=== PATIENT | male | born 1940 | race Caucasian/White ===

== ENCOUNTER 2018-01-20 13:36 | Inpatient (IN) | payer MEDICARE, SELFPAY ==
[2018-01-20] VITALS (13 sets, daily range): BP systolic 122–169; BP diastolic 56–75; PULSE 58–75; RESP 13–18; TEMP 36.5–36.6; O2SAT 69–100; BMI 24.3; BMI 22.4
--- NOTE | 2018-01-20 13:50 | ED.RN ---
PT HAD A RECENT CASE OF BEDBUGS SO [facility], CLOTHING REMOVED AND BATHED. PT WAS PLACED IN A GOWN AND CLOTHING BAGGED UP. NO BUGS OR BITES WERE OBSERVED AT THIS TIME.
--- NOTE | 2018-01-20 13:56 | EKG12_ITS ---
Test Reason : Blood Pressure : / mmHG Vent. Rate : 076 BPM Atrial Rate : 076 BPM P-R Int : 148 ms QRS Dur : 136 ms QT Int : 414 ms P-R-T Axes : -14 043 022 degrees QTc Int : 465 ms Sinus rhythm with Premature supraventricular complexes Non-specific intra-ventricular conduction block Abnormal ECG Confirmed by OSMIN GO, JOSÉ ([id number]), website/blog editor JASSON KIRK ([id number]) on 01/23/2018 12:52:19 PM Referred By: LIAM Confirmed By:JOSÉ SOLORIO MD
[2018-01-20] MEDS: 0.9% Normal Saline 1,000 ML 999 ML IV ×2 (14:00→15:00)
--- NOTE | 2018-01-20 14:15 | RAD_ITS ---
STUDY: X-RAY CHEST REASON FOR EXAM: Male, 77 years old. Dyspnea. TECHNIQUE: Frontal and lateral views of the chest. # of Images: 3 COMPARISON: None. FINDINGS: The lungs are clear and expanded. There is no demonstrated pleural abnormality. Sternal cerclage wires are present from a prior sternotomy. Normal mediastinum and alyson. Normal visualized pulmonary arteries. Normal visualized aortic arch and descending thoracic aorta. Normal visualized thoracic spine. There is degenerative osteoarthritis of the bilateral shoulders. There is no demonstrated abnormality of the visualized soft tissue structures of the upper abdomen. RAD/Chest PA and Lateral IMPRESSION: Degenerative changes, as described above. No demonstrated acute cardiopulmonary process. Electronically Signed: Robinson Clay MD at 15:09 EDT Tel , Service support ,
[2018-01-20 14:24] LABS: Absolute Lymphocyte Count 1.47 X10^3/ul (0.83-4.51); Absolute Neutrophil Count 12.8 X10^3/uL (2.0-7.7); Eosinophil# 0.08 X10^3/uL; Eosinophils% 0.5 % (0-5); Hematocrit 35.9 % (40-54); Hemoglobin 12.1 g/dl (13.0-16.5); Lymphocyte # 1.47 X10^3/ul (4.0); Lymphocyte % 9.9 % (19-41); Mean Corp Hgb Conc 33.7 g/gl (32-36); Mean Corpuscular Volume 92.1 fL (80-94); Mean Platelet Vol. 9.9 fl (6.2-12.0); Monocyte# 0.45 X10^3/uL; Neutrophil # 12.84 X10^3/uL (2.7-7.7); Neutrophil % 86.5 % (47-70); Platelet Count 277 K/mm3 (150-450); RBC Distribution Width CV 11.9 % (11.6-14.6); RBC Distribution Width SD 39.9 fl (35.1-43.9); White Blood Count 14.9 K/mm3 (4.4-11.0)
[2018-01-20 14:28] LABS: Differential Indicated SCAN CRITERIA MET; POSITIVE COUNT NO; POSITIVE DIFFERENTIAL NO; POSITIVE MORPHOLOGY YES
[2018-01-20 14:36] LABS: Anion Gap 10 (5-15); BUN 48 mg/dL (7-18); BUN/Creat Ratio 26.7 RATIO (10-20); Calcium,Total 8.6 mg/dL (8.5-10.1); Chloride 95 mmol/L (98-107); EST Glomerular Filtration Rate 39 mL/min (>60); Est Glom Filt Rate - Afr Amer 48 mL/min (>60); Estimated Creatinine Clearance 34.31 ml/min; Glucose 661 mg/dL (74-106); Potassium 5.4 mmol/L (3.5-5.1); Sodium Level 128 mmol/L (136-145)
[2018-01-20 14:41] LABS: Differential Comment SCANNED
[2018-01-20 14:51] LABS: Bedside Glucose > 500 mg/dL (70-110)
[2018-01-20 14:51] LABS: Bedside Glucose > 500 mg/dL (70-110)
--- NOTE | 2018-01-20 15:00 | CM.ED ---
Referral Date: 01/20/2018 Date of Assessment: 01/20/2018 Informant: Gricelda Null RN Reason for Consult: Limited Supports Clothes/House unkempt Information obtained from: Medical record and pt. Pt was alert and oriented x4. Pt is very [place]. No family/visitors present during conversation. Pt presents with pleasant affect as evidenced by smiling and willingness to participate in assessment. Living Situation: Pt reports to live alone in a two-story home with a one-level setup. Denies access issues or use of DME for ambulation for assistance in completing ADL's. Reports to be independent with ADL's and denies need for assistance. States that someone could aide him with laundry. Inform that this presently would be a private pay expense, which the pt denies being able to do. Address that their are two siblings listed on the demo sheet with the same address. Pt confirms that his brother, Hai, has since passed, and his sister, Dana is presently residing at [facility]. Financial: Pt gets $441 through social security monthly. Claims to be financially stable, and the pt denies inability to meet basic needs such as food, water, fci, and utility expenses. Educate to Medicaid as the pt does not have this, and he is agreeable to reviewing an application. Provide pt with the application, and he would like to review it. Denies assistance from this song writer to complete the application at this time. Pt is retired and worked at [employer] as well as the [employer] prior to retiring. Denies a pension and reports the above noted SS amount for monthly income. Transportation: Pt does not drive. Reports to get vouchers through [employer] [facility]. States that this is sufficient enough to meet needs. Education: Pt reports to have completed high school. Is able to read and right and denies comprehension concerns. Pt is able to maintain appropriate conversation throughout assessment and train of thought remains aligned with conversation topic. Medical Hx: Type I Diabetes, Hyperlipidemia, Hypertension, Presbycusis of both ears, and TIA. Pt reportedly quit taking his insulin about a year ago. States I didn't think it was doing anything. I felt the same when I took it, as when I didn't. Inform that to maintain a balanced blood sugar level he needs to be compliant with insulin. Denies any financial issues with obtaining insulin. Mental Health Hx: Pt denies mental health history. Denies symptoms of anxiety or depression. Denies SI or HI. Substance Use Hx: Pt denies substance use in the past or presently. Social and/or Family Stressors: Pt denies any family disputes or stressors presently. States that his sister is in a SNF, and he has cousins that live within [facility], but he does not see them much. Reports again that he can manage his own care, and does not have any stressors presently. Supports: Identifies his sister, Dana, as his primary support. No children. ASSESSMENT: Pt presents with pleasant affect as evidenced by smiling and willingness to participate in assessment. Pt is alert and oriented x4 and able to maintain topic of conversation. Reportedly lives alone and claims to be able to manage care. Per nursing staff the pt came in with dirty clothes, and stated he had not bathed in a week. Do believe that an APS reports at discharge is appropriate d/t to uncleanly presentation upon entry into ED as well as known hx of deplorable living conditions. At this time pt does intend on returning home. However, is agreeable to consider recommendations provided by therapy following evaluations. SW to continue to follow and assist with discharge planning. PLAN: Assist in discharge planning upon completion of PT/OT evaluations to determine appropriate level of care at discharge. Submit Medicaid application to [facility], upon completion, for medical assistance and food stamp assistance. KEELEY [place], TRISTAN
--- NOTE | 2018-01-20 15:11 | ED.VISSUMM ---
- ER Visit Summary Date of Service: 01/20/18 Chief Complaint: Generalized weakness for the past 3 days and complains of cough with shortness of breath History of Present Illness: The patient is a 77 M who is a poor informant because he did not bring in the list of his meds nor is he wearing his hearing aid. He is very hard of hearing. After attempting verbal and written communication it was determined the patient has not felt well for the past 3 days. He admits he has not taken his insulin for months. He does not know the specific names of his medicines. He states he has had heart disease with history of heart attack, hypertension and high cholesterol. He states he stopped taking the insulin because it did not have any effect. He denies any double vision, blurred vision or change in vision. He denies chest pain, palpitations or rapid heart rate. He denies orthopnea or PND. He denies nausea, vomiting diarrhea. He denies any urologic symptoms including frequency. He denies myalgias arthralgias. He denies headache, anesthesia, paresthesia or motor weakness. He complains of generalized weakness. Physical Examination: Vital signs noted and unremarkable blood pressure 123/75. He is not febrile. Head is atraumatic normocephalic. Pupils are equal round reactive. Extraocular muscles are intact. TMs are pearly white with landmarks noted. Nares patent with no drainage. Posterior pharynx without erythema or exudate. Uvula is midline. Tongue and buccal mucosa are dry. There is no dysphonia or dysphasia. Trachea is midline. There is no stridor with auscultation of the neck. Heart is regular without murmur, gallop or rub. S1 and S2 are normal. Lungs are clear to auscultation with good movement of air bilaterally. Abdomen scaphoid nontender bowel sounds present diminished. There is no CVA tenderness noted. Patient has stigmata of peripheral arterial disease lower extremities. Neuro is nonfocal. There are no skin lesions or rash. Test Results: B GT read high. White count is 14.9 thousand with no shift. H&H 12.1 and 35.9. Basic metabolic panel reveals a sodium of 128, potassium of 5.4, chloride 95 with a CO2 of 23 and anion gap of 10. Glucose is 661. BUN and creatinine are 48 and 1.81. Troponin was obtained and less than 0.015. EKG sinus rhythm rate of 76 with an intraventricular conduction delay and peaked T waves suggestive of hyperkalemia. There apparently is no old EKG for comparison Emergency Department Course and Treatment: With history of generalized weakness dyspnea cough and prior medical problems and EKG was obtained to evaluate for hyperkalemia and acute ischemia since monitor reveals depression. Chest x-ray to evaluate for CHF, pneumonia or other cause of his shortness of breath. DKA order set was initiated. He received 2 L of normal saline prior to the initiation of insulin drip. His blood sugar did decrease to upper 500s with IV fluid administration. Plan is to treat mild hyperkalemia with insulin drip and repeat BMP. If there is no improvement or any concerns further treatment can be undertaken. Treatment Plan: The hospitalist was paged for admission to PCU stepdown Disposition: Admit PCU stepdown Impression: 1. Nonketotic hyperglycemia 2. Acute kidney injury 3. Pseudohyponatremia 4. Hyperkalemia 5. History of coronary disease/OK 6. History of hypertension 7. History of hypercholesterolemia This note was generated with [employer] dictation software. It may contain incorrect words, spelling, and punctuation that were not noted in review of the chart prior to signing ED Disposition - Plan for ED Patient: Chief Complaint: Hyperglycemia Referrals: Roseann Jackson MD [Primary Care Provider] -
--- NOTE | 2018-01-20 15:17 | ED.DCSUM_ITS ---
- ER Visit Summary Date of Service: 01/20/18 Chief Complaint: Generalized weakness for the past 3 days and complains of cough with shortness of breath History of Present Illness: The patient is a 77 M who is a poor informant because he did not bring in the list of his meds nor is he wearing his hearing aid. He is very hard of hearing. After attempting verbal and written communication it was determined the patient has not felt well for the past 3 days. He admits he has not taken his insulin for months. He does not know the specific names of his medicines. He states he has had heart disease with history of heart attack, hypertension and high cholesterol. He states he stopped taking the insulin because it did not have any effect. He denies any double vision, blurred vision or change in vision. He denies chest pain, palpitations or rapid heart rate. He denies orthopnea or PND. He denies na usea, vomiting diarrhea. He denies any urologic symptoms including frequency. He denies myalgias arthralgias. He denies headache, anesthesia, paresthesia or motor weakness. He complains of generalized weakness. Physical Examination: Vital signs noted and unremarkable blood pressure 123/75. He is not febrile. Head is atraumatic normocephalic. Pupils are equal round reactive. Extraocular muscles are intact. TMs are pearly white with landmarks noted. Nares patent with no drainage. Posterior pharynx without erythema or exudate. Uvula is midline. Tongue and buccal mucosa are dry. There is no dysphonia or dysphasia. Trachea is midline. There is no stridor with auscultation of the neck. Heart is regular without murmur, gallop or rub. S1 and S2 are normal. Lungs are clear to auscultation with good movement of air bilaterally. Abdomen scaphoid nontender bowel sounds present diminished. There is no CVA tenderness noted. Patient has stigmata of peripheral arterial disease lower extremities. Neuro is nonfocal. There are no skin lesions or rash. Test Results: B GT read high. White count is 14.9 thousand with no shift. H&H 12.1 and 35.9. Basic metabolic panel reveals a sodium of 128, potassium of 5.4, chloride 95 with a CO2 of 23 and anion gap of 10. Glucose is 661. BUN and creatinine are 48 and 1.81. Troponin was obtained and less than 0.015. EKG sinus rhythm rate of 76 with an intraventricular conduction delay and peaked T waves suggestive of hyperkalemia. There apparently is no old EKG for comparison Emergency Department Course and Treatment: With history of generalized weakness dyspnea cough and prior medical problems and EKG was obtained to evaluate for hyperkalemia and acute ischemia since monitor reveals depression. Chest x-ray to evaluate for CHF, pneumonia or other cause of his shortness of breath. DKA order set was initiated. He received 2 L of normal saline prior to the initiation of insulin drip. His blood sugar did decrease to upper 500s with IV fluid administration. Plan is to treat mild hyperkalemia with insulin drip and repeat BMP. If there is no improvement or any concerns further treatment can be undertaken. Treatment Plan: The hospitalist was paged for admission to PCU stepdown Disposition: Admit PCU stepdown Impression: 1. Nonketotic hyperglycemia 2. Acute kidney injury 3. Pseudohyponatremia 4. Hyperkalemia 5. History of coronary disease/ME 6. History of hypertension 7. History of hypercholesterolemia This note was generated with [employer] dictation software. It may contain incorrect words, spelling, and punctuation that were not noted in review of the chart prior to signing ED Disposition - Plan for ED Patient: Chief Complaint: Hyperglycemia Referrals: Roseann Jackson MD [Primary Care Provider] -
[2018-01-20 15:27] LABS: Bacteria 0 SEEN /hpf (None Seen); Mucous, Urine 0 SEEN /hpf (<or=2+); Red Blood Cells-Urine 0 SEEN /hpf (0-5); Squamous Epithelial Cells - UA 0 SEEN /hpf (0-5); White Blood Cells 0 SEEN /hpf (0-5)
[2018-01-20 15:30] LABS: Color, Urine Yellow (Yellow); Glucose, Dipstick 1000 mg/dl (Normal); Ketone-Dipstick Negative (Negative); Leukocyte Esterase-Dipstick Negative /ul (Negative); Nitrite-Dipstick Negative (Negative); Occult Blood-Urine Negative /ul (Negative); Protein-Dipstick Negative (Negative); Urine Bilirubin Dipstick Negative (Negative); Urine Clarity Clear (Clear); Urine Urobilinogen Normal (Normal)
--- NOTE | 2018-01-20 15:56 | PCM.HP.STD ---
Problem List (1) Hyperglycemic hyperosmolar state Status: Acute (2) Acute kidney injury Status: Acute (3) Pseudohyponatremia Status: Acute (4) Type I diabetes mellitus Status: Chronic (5) Benign prostatic hypertrophy Status: Chronic (6) Hyperlipidemia Status: Chronic (7) Hypertension Status: Chronic (8) Presbycusis of both ears Status: Chronic (9) TIA (transient ischemic attack) Status: Chronic History of Present Illness Date of Admission: 01/20/18 Chief Complaint: Generalized weakness. The patient is a 77 year old M with past medical history as mentioned above presented to the emergency department because of generalized weakness. The patient is a poor informant because he is hard of hearing and he is not wearing his hearing aid and he was not able to provide detailed history. His main complaint is that he has been feeling weak and not able to ambulate for the last several days. He did not complain of any other specific symptoms except from mild cough and shortness of breath. He mentioned that he stopped taking his insulin almost a year because he thinks that insulin is not doing anything for his blood sugars. He denied chest pain, palpitation, dizziness or lightheadedness. Denied abdominal pain, nausea vomiting. He denied headache, blurry vision or slurred speech. He had a history of CAD status post CABG and he has been on aspirin, statins, beta-blockers and KATHRYN inhibitors. He has a history of type 1 diabetes mellitus and he has been on insulin as well as metformin and glimepiride but he stopped taking insulin almost a year now. Currently, he is not seeing his PCP, Dr. Jackson, and he mentioned that he saw her almost a year ago. He had a history of hypertension and he has been on lisinopril, HCTZ and metoprolol. In the emergency department, his blood pressure was slightly elevated, other vital signs were stable. His routine blood work was remarkable for leukocytosis, sodium of 128, potassium 5.4, BUN of 48, creatinine 4.80 and his blood sugar was 661. His serum bicarb was 23 and anion gap was 10, no evidence of DKA. His troponin was negative. EKG revealed normal sinus rhythm with PVCs and peaked T waves, no acute ischemic changes. Troponin is negative. Chest x-ray showed no acute findings. Urinalysis showed no evidence of acute cystitis. His acetone level was negative. He is being admitted for hyperglycemic hyperosmolar state due to noncompliance with insulin as well as acute kidney injury, pseudohyponatremia and hyperkalemia. Past Medical History Past Medical History (Chronic Problems): Chronic Problems Status post coronary artery bypass graft (Chronic) Coronary artery disease (Chronic) Type I diabetes mellitus (Chronic) Benign prostatic hypertrophy (Chronic) Hyperlipidemia (Chronic) Hypertension (Chronic) Presbycusis of both ears (Chronic) TIA (transient ischemic attack) (Chronic) Allergies No Known Allergies Allergy (Verified 03/19/15 19:41) Home Medications: Ambulatory Orders Medication Instructions Recorded Finasteride [Proscar] 5 mg PO DAILY 10/19/13 Metformin HCl [Glucophage] 1,000 mg PO BIDCM 10/19/13 Tamsulosin HCl [Flomax] 0.4 mg PO DAILY 10/19/13 Insulin NPH Human Isophane 15 units SQ DINNER 03/19/15 [Humulin N Kwikpen] Insulin NPH Human Isophane 18 unit SQ BREAKFAST 03/19/15 [Humulin N Kwikpen] Aspirin [Aspirin, Baby] 81 mg PO DAILY@0800 03/20/15 Glimepiride [Amaryl] 4 mg PO BIDCM 03/20/15 Atorvastatin Calcium 20 mg PO QHS 01/20/18 Hydrochlorothiazide 12.5 mg PO DAILY 01/20/18 Lisinopril [Zestril] 40 mg PO DAILY 01/20/18 Metoprolol Tartrate [Lopressor 50 mg PO BID 01/20/18 (beta chastity)] Nitroglycerin [Nitrostat] 0.4 mg SL PRN PRN 01/20/18 Surgical History: - - Patient is hard of hearing and cannot remember if he had any surgeries in his life. Psychiatric History: No pertinent psych hx Lives: Alone Smoking Status: Never smoker Alcohol: None Drugs: None - *Family History Maternal History Items: - - Patient is hard of hearing, not able to provide detailed family history. Paternal History Items: - - Patient is hard of hearing. Review of Systems Constitutional: Denies: Anorexia, Chills, Fever, Weakness Eyes: Denies: Blurred vision, Double vision, Drainage, Redness HEENT: Denies: Difficulty Hearing, Ear Pain, Eye Pain, Nasal bleeding, Sore Throat Cardiovascular: Denies: Chest Pain, Chest Pressure, Chest Tightness, Palpitations, Syncope Respiratory: Reports: Cough, Shortness of Breath. Denies: Pleuritic Pain, Sputum production, Wheezing Gastrointestinal: Denies: Abdominal Pain, Constipation, Diarrhea, Nausea, Vomiting Genitourinary: Denies: Dysuria, Frequency, Hematuria Musculoskeletal: Denies: Arm Pain, Back Pain, Foot Pain Skin: Denies: Dryness, Rash Neurological: Denies: Balance problems, Double vision, Change in Speech, Slurred speech, Headaches, Incoordination, Numbness Psychiatric: Denies: Anxiety, Depression Endocrine: Denies: Change in Body Habitus, Polydipsia VTE Information - Inpt Only VTE Present on Admission: No VTE Mechan Device Prophylaxis: SCD's VTE Pharm Prophylaxis ordered?: No Patient Problems: Active and Suspected Problems Hyperkalemia (Acute) Hyperglycemic hyperosmolar state (Acute) Acute kidney injury (Acute) Pseudohyponatremia (Acute) - Physical Exam General: Alert, Cooperative, No apparent distress, - - Hard of hearing, poor informant. HEENT: Atraumatic, PERRLA, EOMI, Normocephalic Oral: Moist Mucosa, No Gingival or Mucosal Lesions/ Ulcerations Neck: Supple, No JVD, Negative Carotid Bruits, Trachea Midline, Thyroid Normal Size and Texture Lungs: Clear to auscultation, No rhonchi, No wheeze, No rales, Diminished Cardiovascular: Regular rate, Regular Rhythm, Normal S1, Normal S2, PMI Normal Abdomen: Bowel Sounds Present, Soft, Non Tender, Non-Distended, No Hepato-splenomegaly Extremities: No clubbing, No cyanosis, No edema Skin: No rashes, No breakdown Lymphatic: No Cervical, Supraclavicular, or Inguinal Adenopathy Neurological: Cranial nerves II-XII grossly intact, Motor Exam 5/5 strength throughout Psych/Mental Status: Normal Affect, Appropriate Vital Signs Temp Pulse Resp BP Pulse Ox 97.7 F L 66 17 169/63 H 99 01/20/18 13:45 01/20/18 15:36 01/20/18 15:36 01/20/18 15:36 01/20/18 15:36 Oxygen Delivery Method Room Air Weight: 160 lb Body Mass Index (BMI) 24.3 Finger Stick Blood Glucose 576 Laboratory Tests Past 24 Hrs 01/20/18 01/20/18 01/20/18 14:03 14:03 14:03 WBC 14.9 H RBC 3.90 L Hgb 12.1 L Hct 35.9 L MCV 92.1 MCH 31.0 MCHC 33.7 RDW 11.9 RDW Differential 39.9 Plt Count 277 MPV 9.9 Immature Gran % (Auto) 0.100 Neut % (Auto) 86.5 H Lymph % (Auto) 9.9 L [place] % (Auto) 3.0 Eos % (Auto) 0.5 Baso % (Auto) 0.0 Absolute Neuts (auto) 12.8 H Absolute Lymphs (auto) 1.47 Total Counted Not Reportable Differential Comment SCANNED Sodium 128 L Potassium 5.4 H Chloride 95 L Carbon Dioxide 23.0 Anion Gap 10 BUN 48 H Creatinine 1.80 H Estim Creat Clear Calc 34.31 Est GFR (MDRD) Af Amer 48 L Est GFR (MDRD) Non-Af 39 L BUN/Creatinine Ratio 26.7 H Glucose 661 H* Calcium 8.6 Troponin I < 0.015 Urine Color Urine Clarity Urine pH Ur Specific [place] Urine Protein Urine Glucose (UA) Urine Ketones Urine Occult Blood Urine Nitrite Urine Bilirubin Urine Urobilinogen Ur Leukocyte Esterase Urine RBC Urine WBC Ur Squamous Epith Cells Urine Bacteria Urine Mucus Acetone Level NEGATIVE 01/20/18 01/20/18 14:03 15:20 WBC RBC Hgb Hct MCV MCH MCHC RDW RDW Differential Plt Count MPV Immature Gran % (Auto) Neut % (Auto) Lymph % (Auto) [place] % (Auto) Eos % (Auto) Baso % (Auto) Absolute Neuts (auto) Absolute Lymphs (auto) Total Counted Differential Comment Sodium Cancelled Potassium Cancelled Chloride Cancelled Carbon Dioxide Cancelled Anion Gap Cancelled BUN Cancelled Creatinine Cancelled Estim Creat Clear Calc Cancelled Est GFR (MDRD) Af Amer Cancelled Est GFR (MDRD) Non-Af Cancelled BUN/Creatinine Ratio Cancelled Glucose Cancelled Calcium Cancelled Troponin I Urine Color Yellow Urine Clarity Clear Urine pH 5.0 Ur Specific [place] 1.010 Urine Protein Negative Urine Glucose (UA) 1000 H Urine Ketones Negative Urine Occult Blood Negative Urine Nitrite Negative Urine Bilirubin Negative Urine Urobilinogen Normal Ur Leukocyte Esterase Negative Urine RBC 0 SEEN Urine WBC 0 SEEN Ur Squamous Epith Cells 0 SEEN Urine Bacteria 0 SEEN Urine Mucus 0 SEEN Acetone Level POC Glucose 01/20/18 01/20/18 14:45 13:50 POC Glucose > 500 H* > 500 H* Clinical Impression(s) from Imaging Studies Chest X-Ray 01/20/18 14:15 IMPRESSION: Degenerative changes, as described above. No demonstrated acute cardiopulmonary process. Electronically Signed: Robinson Clay MD at 15:09 EDT Tel , Service support , Assessment/Plan All Active Problems Hyperkalemia (Acute) Hyperglycemic hyperosmolar state (Acute) Acute kidney injury (Acute) Pseudohyponatremia (Acute) This is a 77 years old male patient presented to the emergency room because of weakness and he was found to have hyperglycemic hyperosmolar state complicated by acute kidney injury, pseudohyponatremia and hyperkalemia and he is being admitted for treatment. #1 hyperglycemic hyperosmolar state: This is based on blood sugar of more than 600, serum bicarb of more than 18, anion gap of 10 and no ketones in the urine. This is probably due to noncompliance as patient stopped taking his insulin almost 1 year ago. He saw his PCP last time around 1 year ago and he does not check his blood sugar at home. At this time, blood pressure slightly elevated, other vital signs are stable. He received 1 L of IV fluid bolus and received another 500 fluid bolus, started on IV insulin drip. Plan: Admit to ICU, keep on n.p.o. except for p.o. meds, maintenance IV fluids, continue IV insulin drip, BMP every 4 hours, Accu-Cheks per protocol, hemoglobin A1c, IV antiemetics, Tylenol as needed, repeat CBC and BMP tomorrow morning, PT OT evaluation and treatment. #2 acute kidney injury: This is secondary to above. Baseline creatinine is normal. Admission creatinine is 1.80, BUN is 48. Plan: IV fluids, input output chart, repeat BMP tomorrow morning. #3 hyperkalemia: Secondary to above in addition to acute kidney injury. Admission potassium is 5.4. EKG revealed peaked T waves. Patient started on IV insulin drip. Plan: IV fluids, continue IV insulin drip, BMP every 4 hours, repeat EKG tomorrow morning. #4 pseudohyponatremia: Secondary to hyperglycemia. Corrected sodium for glucose is 137. Expect sodium to correct with correction of hyperglycemia. #5 type 1 diabetes mellitus: Keep on n.p.o. for now, continue IV insulin drip as above, hemoglobin A1c. Patient stopped taking his insulin almost 1 year ago. #6 CAD status post CABG: Daily chest pain. EKG revealed peaked T waves, no acute ischemic changes. Troponin is negative. Plan to continue aspirin, statins, lisinopril and metoprolol. #7 hypertension: Blood pressure slightly elevated, continue HCTZ, lisinopril and metoprolol. #8 benign prostatic hypertrophy: Continue Flomax. #9 hyperlipidemia: Continue statins. #10 DVT prophylaxis: Subcu heparin. This note was generated with [employer] dictation software. It may contain incorrect words, spelling, and punctuation that were not noted in checking the note before signing. Code Visit Inpatient E&M: 77141 Init Hosp L3
[2018-01-20] MEDS: 0.9% Normal Saline 1,000 ML 500 ML IV (16:09)
--- NOTE | 2018-01-20 16:46 | ED.RN ---
LAB RESULTED GLUCOSE 499, PHYSICIAN NOTIFIED
[2018-01-20 16:47] LABS: Anion Gap 9 (5-15); BUN 47 mg/dL (7-18); BUN/Creat Ratio 30.1 RATIO (10-20); Calcium,Total 8.5 mg/dL (8.5-10.1); Chloride 101 mmol/L (98-107); Creatinine, Serum 1.56 mg/dL (0.70-1.30); EST Glomerular Filtration Rate 46 mL/min (>60); Est Glom Filt Rate - Afr Amer 56 mL/min (>60); Estimated Creatinine Clearance 39.58 ml/min; Glucose 499 mg/dL (74-106); Sodium Level 133 mmol/L (136-145)
[2018-01-20 16:56] LABS: Bedside Glucose 477 mg/dL (70-110)
[2018-01-20 16:56] LABS: Bedside Glucose 479 mg/dL (70-110)
[2018-01-20 17:21] LABS: Bedside Glucose 412 mg/dL (70-110)
[2018-01-20 17:50] LABS: Allen Test POS; Base Excess -4 mmol/L (-2 to +2); Bicarbonate 19.6 mmol/L (22-26); Blood Gas Specimen Type ART; O2 Delivery Device Room Air; PO2 92 mmHG (75-100); SITE R Radial; SO2 98 % (95-99); Time Given 1743; Total Carbon Dioxide 20 mmol/L; pH 7.47 (7.35-7.45)
[2018-01-20] MEDS: 0.9% Normal Saline 1,000 ML 125 ML IV (18:11)
[2018-01-20 18:36] LABS: Hemoglobin A1c 14.7 % (4.2-6.3)
[2018-01-20 18:51] LABS: Bedside Glucose 295 mg/dL (70-110)
[2018-01-20 18:53] LABS: Anion Gap 6 (5-15); BUN 41 mg/dL (7-18); BUN/Creat Ratio 30.1 RATIO (10-20); Calcium,Total 7.9 mg/dL (8.5-10.1); Chloride 106 mmol/L (98-107); Creatinine, Serum 1.36 mg/dL (0.70-1.30); EST Glomerular Filtration Rate 54 mL/min (>60); Est Glom Filt Rate - Afr Amer 66 mL/min (>60); Estimated Creatinine Clearance 44.48 ml/min; Glucose 335 mg/dL (74-106); Sodium Level 136 mmol/L (136-145); Thyroid Stim Hormone (TSH) 0.62 uIU/mL (0.358-3.74)
[2018-01-20 19:56] LABS: Bedside Glucose 221 mg/dL (70-110)
[2018-01-20 20:51] LABS: Bedside Glucose 193 mg/dL (70-110)
[2018-01-20] MEDS: Metoprolol Tartrate 50 MG Tablet PO (21:39)
[2018-01-20] MEDS: Atorvastatin Calcium 20 MG Tablet PO (21:40)
[2018-01-20] MEDS: Heparin Injection (Vial) 5,000 UNIT/ML VIAL 5000 UNIT SC (21:40)
[2018-01-20 21:51] LABS: Bedside Glucose 185 mg/dL (70-110)
[2018-01-20 22:55] LABS: Bedside Glucose 175 mg/dL (70-110)
--- NOTE | 2018-01-20 23:10 | NURSING ---
Explained to pt swallow eval. Pt expressed understanding. Pt able to take PO fluids and applesauce without coughing. Notified hospitalist of current blood sugar, and pt's ability to tolerate PO nutrition. Order to transition pt from insulin gtt to Lantus and sliding scale was given and performed as ordered.
[2018-01-21] VITALS (21 sets, daily range): BP systolic 96–163; BP diastolic 41–85; PULSE 57–77; RESP 12–19; TEMP 36.2–36.8; O2SAT 92–100
[2018-01-21] MEDS: 0.9% NaCl Peripheral Flush Adult/Peds IV ×3 (00:16→16:16)
[2018-01-21 00:26] LABS: Bedside Glucose 182 mg/dL (70-110)
[2018-01-21] MEDS: CHLORHEXIDINE GLUC 2% CLOTH 1 EACH TOWELETTE TOPICAL (04:06)
[2018-01-21 04:19] LABS: Absolute Lymphocyte Count 1.92 X10^3/ul (0.83-4.51); Absolute Neutrophil Count 6.4 X10^3/uL (2.0-7.7); Basophil# 0.01 X10^3/uL; Basophil% 0.1 % (0-1); Eosinophil# 0.38 X10^3/uL; Eosinophils% 4.2 % (0-5); Hematocrit 32.4 % (40-54); Hemoglobin 11.1 g/dl (13.0-16.5); Lymphocyte # 1.92 X10^3/ul (4.0); Lymphocyte % 21.3 % (19-41); Mean Corp Hgb Conc 34.3 g/gl (32-36); Mean Corpuscular Hgb 31.2 pg (27.0-32.0); Mean Platelet Vol. 9.7 fl (6.2-12.0); Monocyte# 0.32 X10^3/uL; Monocyte% 3.5 % (0-10); Neutrophil # 6.39 X10^3/uL (2.7-7.7); Neutrophil % 70.8 % (47-70); POSITIVE COUNT NO; POSITIVE DIFFERENTIAL NO; POSITIVE MORPHOLOGY NO; Platelet Count 247 K/mm3 (150-450); RBC Distribution Width CV 11.9 % (11.6-14.6); RBC Distribution Width SD 39.4 fl (35.1-43.9); Red Blood Count 3.56 M/mm3 (4.6-6.2)
[2018-01-21 04:36] LABS: ALB/GLOB Ratio 0.8 RATIO (0.9-2.4); AST(SGOT) 9 U/L (15-37); Alanine Aminotransfer ALT/SGPT 18 U/L (16-61); Albumin, Serum 2.6 g/dL (3.2-5.0); Alkaline Phosphatase 69 U/L (45-117); Anion Gap 7 (5-15); BUN 30 mg/dL (7-18); Calcium,Total 8.2 mg/dL (8.5-10.1); Chloride 108 mmol/L (98-107); EST Glomerular Filtration Rate 77 mL/min (>60); Est Glom Filt Rate - Afr Amer 94 mL/min (>60); Estimated Creatinine Clearance 60.49 ml/min; Globulin 3.4 g/dL (2.2-4.2); Glucose 223 mg/dL (74-106); Potassium 4.6 mmol/L (3.5-5.1); Sodium Level 139 mmol/L (136-145)
--- NOTE | 2018-01-21 05:55 | EKG12_ITS ---
Test Reason : MORNING EKG Blood Pressure : / mmHG Vent. Rate : 065 BPM Atrial Rate : 065 BPM P-R Int : 172 ms QRS Dur : 140 ms QT Int : 466 ms P-R-T Axes : 009 018 039 degrees QTc Int : 484 ms Normal sinus rhythm Non-specific intra-ventricular conduction block Abnormal ECG Confirmed by OSMIN GO, JOSÉ ([id number]), editor trade journal FITO LYNNE ([id number]) on 01/25/2018 2:19:28 PM Referred By: JOAQUIM Confirmed By:JOSÉ SOLORIO MD
[2018-01-21] MEDS: Heparin Injection (Vial) 5,000 UNIT/ML VIAL 5000 UNIT SC ×3 (05:58→22:54)
[2018-01-21 06:40] LABS: Bedside Glucose 217 mg/dL (70-110)
[2018-01-21] MEDS: Insulin Lispro 100 UNIT/ML INSULN.PEN SC ×7 (07:54→22:54)
[2018-01-21] MEDS: Aspirin 81 MG TAB.CHEW PO (07:54)
[2018-01-21] MEDS: Metoprolol Tartrate 50 MG Tablet PO ×2 (09:39→22:53)
[2018-01-21] MEDS: Lisinopril 40 MG Tablet PO (09:40)
[2018-01-21] MEDS: Finasteride 5 MG Tablet PO (09:40)
[2018-01-21] MEDS: Tamsulosin HCl 0.4 MG Capsule PO (10:53)
[2018-01-21 11:00] LABS: Bedside Glucose 290 mg/dL (70-110)
[2018-01-21] MEDS: 0.9% Normal Saline 1,000 ML 125 ML IV ×2 (12:00→20:10)
--- NOTE | 2018-01-21 12:57 | PN_ITS ---
Patient Problems: Active and Suspected Problems Hyperkalemia (Acute) Hyperglycemic hyperosmolar state (Acute) Acute kidney injury (Acute) Pseudohyponatremia (Acute) Subjective: Patient was seen and examined today, his blood sugar earlier today was 217. He appears stable for transfer out of the ICU at this time. - Physical Exam General: Alert, Oriented x3, Cooperative, No apparent distress, Well developed, - - Patient is extremely hard of hearing HEENT: Atraumatic, PERRLA, EOMI, Normocephalic Oral: Moist Mucosa Neck: Supple, No Nuchal Rigidity, Trachea Midline, Thyroid Normal Size and Texture Lungs: Clear to auscultation, Normal air movement, No rhonchi, No wheeze Cardiovascular: Regular rate, Regular Rhythm, Normal S1, Normal S2, No murmurs, PMI Normal, No rub noted, No Gallop Abdomen: Bowel Sounds Present, Soft, Non Tender, Non-Distended Extremities: No edema, Capillary Refill Less than 3 Seconds Skin: No rashes, No breakdown Musculoskeletal: No Tenderness to Palpation of Joints or Extremities Neurological: Cranial nerves II-XII grossly intact, Neuro grossly intact, Sensory exam intact to light touch and pain, Coordination normal Psych/Mental Status: Normal Affect, Appropriate, Alert and oriented to time, place, person, mood and affect Vital Signs Temp Pulse Resp BP Pulse Ox 97.6 F L 66 16 137/64 H 100 01/21/18 10:40 01/21/18 10:40 01/21/18 10:40 01/21/18 10:40 01/21/18 10:40 Oxygen Delivery Method Room Air Weight: 67.5 kg Body Mass Index (BMI) 22.4 Finger Stick Blood Glucose 295 Intake and Output for Last 24 Hours 01/19/18 01/20/18 01/21/18 23:59 23:59 23:59 Intake Total 1718.4 / 1718.4 Output Total 1100 / 1100 800 / 800 Balance 618.4 / 618.4 -800 / -800 Laboratory Tests Past 24 Hrs 01/20/18 01/20/18 01/20/18 14:03 14:03 14:03 WBC 14.9 H RBC 3.90 L Hgb 12.1 L Hct 35.9 L MCV 92.1 MCH 31.0 MCHC 33.7 RDW 11.9 RDW Differential 39.9 Plt Count 277 MPV 9.9 Immature Gran % (Auto) 0.100 Neut % (Auto) 86.5 H Lymph % (Auto) 9.9 L [place] % (Auto) 3.0 Eos % (Auto) 0.5 Baso % (Auto) 0.0 Absolute Neuts (auto) 12.8 H Absolute Lymphs (auto) 1.47 Total Counted Not Reportable Differential Comment SCANNED Specimen Type Sample Site pH Bicarbonate Actual POC Total CO2 Base Excess O2 Saturation ABG pCO2 ABG pO2 [place] Test O2 Delivery Device Blood Gas Notified Whom Blood Gas Notified Time Sodium 128 L Potassium 5.4 H Chloride 95 L Carbon Dioxide 23.0 Anion Gap 10 BUN 48 H Creatinine 1.80 H Estim Creat Clear Calc 34.31 Est GFR (MDRD) Af Amer 48 L Est GFR (MDRD) Non-Af 39 L BUN/Creatinine Ratio 26.7 H Glucose 661 H* Hemoglobin A1c Calcium 8.6 Total Bilirubin AST ALT Alkaline Phosphatase Troponin I < 0.015 Total Protein Albumin Globulin Albumin/Globulin Ratio TSH Urine Color Urine Clarity Urine pH Ur Specific [place] Urine Protein Urine Glucose (UA) Urine Ketones Urine Occult Blood Urine Nitrite Urine Bilirubin Urine Urobilinogen Ur Leukocyte Esterase Urine RBC Urine WBC Ur Squamous Epith Cells Urine Bacteria Urine Mucus Acetone Level NEGATIVE 01/20/18 01/20/18 01/20/18 15:20 16:06 17:47 WBC RBC Hgb Hct MCV MCH MCHC RDW RDW Differential Plt Count MPV Immature Gran % (Auto) Neut % (Auto) Lymph % (Auto) [place] % (Auto) Eos % (Auto) Baso % (Auto) Absolute Neuts (auto) Absolute Lymphs (auto) Total Counted Differential Comment Specimen Type ART Sample Site R Radial pH 7.47 H Bicarbonate Actual 19.6 L POC Total CO2 20 Base Excess -4 L O2 Saturation 98 ABG pCO2 27.0 L ABG pO2 92 [place]ame Test POS O2 Delivery Device Room Air Blood Gas Notified Whom [place] [employer] Blood Gas Notified Time 1743 Sodium 133 L Potassium 5.0 Chloride 101 Carbon Dioxide 23.0 Anion Gap 9 BUN 47 H Creatinine 1.56 H Estim Creat Clear Calc 39.58 Est GFR (MDRD) Af Amer 56 L Est GFR (MDRD) Non-Af 46 L BUN/Creatinine Ratio 30.1 H Glucose 499 H* Hemoglobin A1c Calcium 8.5 Total Bilirubin AST ALT Alkaline Phosphatase Troponin I Total Protein Albumin Globulin Albumin/Globulin Ratio TSH Urine Color Yellow Urine Clarity Clear Urine pH 5.0 Ur Specific [place] 1.010 Urine Protein Negative Urine Glucose (UA) 1000 H Urine Ketones Negative Urine Occult Blood Negative Urine Nitrite Negative Urine Bilirubin Negative Urine Urobilinogen Normal Ur Leukocyte Esterase Negative Urine RBC 0 SEEN Urine WBC 0 SEEN Ur Squamous Epith Cells 0 SEEN Urine Bacteria 0 SEEN Urine Mucus 0 SEEN Acetone Level 01/20/18 01/20/18 01/21/18 18:00 18:00 04:00 WBC RBC Hgb Hct MCV MCH MCHC RDW RDW Differential Plt Count MPV Immature Gran % (Auto) Neut % (Auto) Lymph % (Auto) [place] % (Auto) Eos % (Auto) Baso % (Auto) Absolute Neuts (auto) Absolute Lymphs (auto) Total Counted Differential Comment Specimen Type Sample Site pH Bicarbonate Actual POC Total CO2 Base Excess O2 Saturation ABG pCO2 ABG pO2 [place] Test O2 Delivery Device Blood Gas Notified Whom Blood Gas Notified Time Sodium 136 Cancelled Potassium 4.0 Cancelled Chloride 106 Cancelled Carbon Dioxide 24.0 Cancelled Anion Gap 6 Cancelled BUN 41 H Cancelled Creatinine 1.36 H Cancelled Estim Creat Clear Calc 44.48 Cancelled Est GFR (MDRD) Af Amer 66 Cancelled Est GFR (MDRD) Non-Af 54 L Cancelled BUN/Creatinine Ratio 30.1 H Cancelled Glucose 335 H Cancelled Hemoglobin A1c 14.7 H Calcium 7.9 L Cancelled Total Bilirubin AST ALT Alkaline Phosphatase Troponin I Total Protein Albumin Globulin Albumin/Globulin Ratio TSH 0.62 Urine Color Urine Clarity Urine pH Ur Specific [place] Urine Protein Urine Glucose (UA) Urine Ketones Urine Occult Blood Urine Nitrite Urine Bilirubin Urine Urobilinogen Ur Leukocyte Esterase Urine RBC Urine WBC Ur Squamous Epith Cells Urine Bacteria Urine Mucus Acetone Level 01/21/18 01/21/18 04:00 04:00 WBC 9.0 RBC 3.56 L Hgb 11.1 L Hct 32.4 L MCV 91.0 MCH 31.2 MCHC 34.3 RDW 11.9 RDW Differential 39.4 Plt Count 247 MPV 9.7 Immature Gran % (Auto) 0.100 Neut % (Auto) 70.8 H Lymph % (Auto) 21.3 [place] % (Auto) 3.5 Eos % (Auto) 4.2 Baso % (Auto) 0.1 Absolute Neuts (auto) 6.4 Absolute Lymphs (auto) 1.92 Total Counted Not Reportable Differential Comment Specimen Type Sample Site pH Bicarbonate Actual POC Total CO2 Base Excess O2 Saturation ABG pCO2 ABG pO2 [place] Test O2 Delivery Device Blood Gas Notified Whom Blood Gas Notified Time Sodium 139 Potassium 4.6 Chloride 108 H Carbon Dioxide 24.0 Anion Gap 7 BUN 30 H Creatinine 1.00 Estim Creat Clear Calc 60.49 Est GFR (MDRD) Af Amer 94 Est GFR (MDRD) Non-Af 77 BUN/Creatinine Ratio 30.0 H Glucose 223 H Hemoglobin A1c Calcium 8.2 L Total Bilirubin 0.50 AST 9 L ALT 18 Alkaline Phosphatase 69 Troponin I Total Protein 6.0 L Albumin 2.6 L Globulin 3.4 Albumin/Globulin Ratio 0.8 L TSH Urine Color Urine Clarity Urine pH Ur Specific [place] Urine Protein Urine Glucose (UA) Urine Ketones Urine Occult Blood Urine Nitrite Urine Bilirubin Urine Urobilinogen Ur Leukocyte Esterase Urine RBC Urine WBC Ur Squamous Epith Cells Urine Bacteria Urine Mucus Acetone Level POC Glucose 01/21/18 01/21/18 01/21/18 10:47 06:36 00:17 POC Glucose 290 H 217 H 182 H 01/20/18 01/20/18 01/20/18 22:51 21:45 20:47 POC Glucose 175 H 185 H 193 H 01/20/18 01/20/18 01/20/18 19:47 18:45 17:14 POC Glucose 221 H 295 H 412 H 01/20/18 01/20/18 01/20/18 16:39 15:56 14:45 POC Glucose 479 H* 477 H* > 500 H* 01/20/18 13:50 POC Glucose > 500 H* Medical Necessity - Tobacco Use Smoking Status: Never smoker Tobacco Use: Non-smoker Assessment/Plan All Active Problems Hyperkalemia (Acute) Hyperglycemic hyperosmolar state (Acute) Acute kidney injury (Acute) Pseudohyponatremia (Acute) Type I diabetes mellitus (Ruled-out) #1 hyperosmolar nonketotic hyperglycemia secondary to type 2 diabetes uncontrolled-continue present treatment with insulin, continue IV fluids, continue to monitor blood sugars #2 coronary artery disease #3 acute kidney injury-continue IV fluids #4 hypertension #5 noncompliance with medical regimen Code Visit Inpatient E&M: 72052 Subs Hosp L2
[2018-01-21] MEDS: hydrALAZINE 20 MG/ML Vial 10 MG IV (16:15)
[2018-01-21 16:16] LABS: Bedside Glucose 241 mg/dL (70-110)
--- NOTE | 2018-01-21 17:54 | NURSING ---
got verbal consent from jason to release medical information to his cousin hilda russ. Jason also stated besides discussing medical information to inform her to go take care of the cat and get the mail. Hilda stated she is POA of sister Dana who is currently in ECF. Hilda also stated she is the person whom has been assisting with Jason and she had made a call to APS last month d/t the condition of the house stating there are bugs everywhere, it is unkempt, and there is no running water in the kitchen. Hilda requesting her name be added to the demographics as a person to contact at cell phone number [phone]. Discussed that case management/ social services aide is not available to discuss discharge plan with her at this time, however they would be who to discuss it with. Pt and Hilda deny further needs.
[2018-01-21 20:11] LABS: Bedside Glucose 227 mg/dL (70-110)
[2018-01-21] MEDS: Atorvastatin Calcium 20 MG Tablet PO (22:53)
[2018-01-21 23:10] LABS: Bedside Glucose 374 mg/dL (70-110)
[2018-01-22] VITALS (7 sets, daily range): BP systolic 123–141; BP diastolic 59–74; PULSE 63–74; RESP 16–18; TEMP 36.7–37.2; O2SAT 95–98
[2018-01-22] MEDS: Heparin Injection (Vial) 5,000 UNIT/ML VIAL 5000 UNIT SC ×3 (05:11→21:23)
[2018-01-22] MEDS: 0.9% Normal Saline 1,000 ML 125 ML IV ×2 (05:11→12:07)
[2018-01-22] MEDS: Insulin Lispro 100 UNIT/ML INSULN.PEN SC ×7 (08:31→21:23)
[2018-01-22] MEDS: Aspirin 81 MG TAB.CHEW PO (08:32)
[2018-01-22] MEDS: Menthol/Lanolin/Calamine/Znox 113 GM Tube 1 APPLIC TOPICAL ×2 (08:41→12:07)
[2018-01-22] MEDS: Metoprolol Tartrate 50 MG Tablet PO ×2 (08:41→21:27)
[2018-01-22] MEDS: Lisinopril 40 MG Tablet PO (08:42)
[2018-01-22] MEDS: Finasteride 5 MG Tablet PO (08:42)
[2018-01-22 12:16] LABS: Bedside Glucose 483 mg/dL (70-110)
[2018-01-22 16:20] LABS: Bedside Glucose 245 mg/dL (70-110)
[2018-01-22 16:56] LABS: Bedside Glucose 280 mg/dL (70-110)
[2018-01-22] MEDS: Tamsulosin HCl 0.4 MG Capsule PO (17:15)
--- NOTE | 2018-01-22 18:05 | PCM.PROGNOTE ---
Patient Problems: Active and Suspected Problems Hyperkalemia (Acute) Hyperglycemic hyperosmolar state (Acute) Acute kidney injury (Acute) Pseudohyponatremia (Acute) Subjective: Patient was seen and examined today, his blood sugars are not totally under control at the end, I attempted to get a hold of family members but the patient states he lives by himself-I called the number for his house where he supposedly lives with his sister and brother and there was no answer. I have serious doubts that the patient is able to take care of himself at home, he states he has never been on insulin before. It is my opinion that he does not follow-up with a physician on a regular basis. I have readjusted his insulin dosage today, case management will need to see the patient tomorrow to investigate his living conditions. - Physical Exam General: Alert, Cooperative, No apparent distress, Well developed HEENT: Atraumatic, PERRLA, EOMI, Normocephalic Oral: Moist Mucosa Neck: Supple, No Nuchal Rigidity, Trachea Midline, Thyroid Normal Size and Texture Lungs: Clear to auscultation, Normal air movement, No rhonchi, No wheeze, No rales Cardiovascular: Regular rate, Regular Rhythm, Normal S1, Normal S2, PMI Normal, No rub noted, No Gallop Abdomen: Bowel Sounds Present, Soft, Non Tender, Non-Distended, No hernias noted Extremities: No edema, Capillary Refill Less than 3 Seconds Skin: No rashes, No breakdown Musculoskeletal: No Tenderness to Palpation of Joints or Extremities Neurological: Cranial nerves II-XII grossly intact, Sensory exam intact to light touch and pain, Coordination normal Psych/Mental Status: Normal Affect, Appropriate Vital Signs Temp Pulse Resp BP Pulse Ox 98.1 F 66 18 124/68 H 95 01/22/18 11:15 01/22/18 11:15 01/22/18 11:15 01/22/18 11:15 01/22/18 11:15 Oxygen Delivery Method Room Air Weight: 67.948 kg Body Mass Index (BMI) 22.4 Finger Stick Blood Glucose 295 Intake and Output for Last 24 Hours 01/20/18 01/21/18 01/22/18 23:59 23:59 23:59 Intake Total 1718.4 / 1718.4 1372 / 1372 2394 / 2394 Output Total 1100 / 1100 800 / 800 Balance 618.4 / 618.4 572 / 572 2394 / 2394 POC Glucose 01/22/18 01/22/18 01/22/18 16:49 12:01 08:28 POC Glucose 280 H 483 H* 245 H 01/21/18 01/21/18 22:51 07:49 POC Glucose 374 H 227 H Medical Necessity - Tobacco Use Smoking Status: Never smoker Tobacco Use: Non-smoker Assessment/Plan All Active Problems Hyperkalemia (Acute) Hyperglycemic hyperosmolar state (Acute) Acute kidney injury (Acute) Pseudohyponatremia (Acute) Type I diabetes mellitus (Ruled-out) #1 hyperosmolar nonketotic hyperglycemia secondary to type 2 diabetes uncontrolled-patient's insulin dosage was adjusted today, again I do not feel patient is capable of administering his own insulin at home and checking his blood sugars, he may need placement in a care home facility initially. Case management will see the patient tomorrow #2 coronary artery disease #3 acute kidney injury-patient's BUN was 30 yesterday, I have decided to stop the patient's IV fluids and obtain labs tomorrow #4 hypertension #5 noncompliance with medical regimen Code Visit Inpatient E&M: 17157 Subs Hosp L2
--- NOTE | 2018-01-22 18:10 | PN_ITS ---
Patient Problems: Active and Suspected Problems Hyperkalemia (Acute) Hyperglycemic hyperosmolar state (Acute) Acute kidney injury (Acute) Pseudohyponatremia (Acute) Subjective: Patient was seen and examined today, his blood sugars are not totally under control at the end, I attempted to get a hold of family members but the patient states he lives by himself-I called the number for his house where he supposedly lives with his sister and brother and there was no answer. I have serious doubts that the patient is able to take care of himself at home, he states he has never been on insulin before. It is my opinion that he does not follow-up with a physician on a regular basis. I have readjusted his insulin dosage today, case management will need to see the patient tomorrow to investigate his living conditions. - Physical Exam General: Alert, Cooperative, No apparent distress, Well developed HEENT: Atraumatic, PERRLA, EOMI, Normocephalic Oral: Moist Mucosa Neck: Supple, No Nuchal Rigidity, Trachea Midline, Thyroid Normal Size and Texture Lungs: Clear to auscultation, Normal air movement, No rhonchi, No wheeze, No rales Cardiovascular: Regular rate, Regular Rhythm, Normal S1, Normal S2, PMI Normal, No rub noted, No Gallop Abdomen: Bowel Sounds Present, Soft, Non Tender, Non-Distended, No hernias noted Extremities: No edema, Capillary Refill Less than 3 Seconds Skin: No rashes, No breakdown Musculoskeletal: No Tenderness to Palpation of Joints or Extremities Neurological: Cranial nerves II-XII grossly intact, Sensory exam intact to light touch and pain, Coordination normal Psych/Mental Status: Normal Affect, Appropriate Vital Signs Temp Pulse Resp BP Pulse Ox 98.1 F 66 18 124/68 H 95 01/22/18 11:15 01/22/18 11:15 01/22/18 11:15 01/22/18 11:15 01/22/18 11:15 Oxygen Delivery Method Room Air Weight: 67.948 kg Body Mass Index (BMI) 22.4 Finger Stick Blood Glucose 295 Intake and Output for Last 24 Hours 01/20/18 01/21/18 01/22/18 23:59 23:59 23:59 Intake Total 1718.4 / 1718.4 1372 / 1372 2394 / 2394 Output Total 1100 / 1100 800 / 800 Balance 618.4 / 618.4 572 / 572 2394 / 2394 POC Glucose 01/22/18 01/22/18 01/22/18 16:49 12:01 08:28 POC Glucose 280 H 483 H* 245 H 01/21/18 01/21/18 22:51 07:49 POC Glucose 374 H 227 H Medical Necessity - Tobacco Use Smoking Status: Never smoker Tobacco Use: Non-smoker Assessment/Plan All Active Problems Hyperkalemia (Acute) Hyperglycemic hyperosmolar state (Acute) Acute kidney injury (Acute) Pseudohyponatremia (Acute) Type I diabetes mellitus (Ruled-out) #1 hyperosmolar nonketotic hyperglycemia secondary to type 2 diabetes uncontrolled-patient's insulin dosage was adjusted today, again I do not feel patient is capable of administering his own insulin at home and checking his b lood sugars, he may need placement in a shelter facility initially. Case management will see the patient tomorrow #2 coronary artery disease #3 acute kidney injury-patient's BUN was 30 yesterday, I have decided to stop the patient's IV fluids and obtain labs tomorrow #4 hypertension #5 noncompliance with medical regimen Code Visit Inpatient E&M: 38663 Subs Hosp L2
[2018-01-22] MEDS: Atorvastatin Calcium 20 MG Tablet PO (21:27)
[2018-01-22 21:50] LABS: Bedside Glucose 255 mg/dL (70-110)
[2018-01-23] MEDS: Heparin Injection (Vial) 5,000 UNIT/ML VIAL 5000 UNIT SC ×2 (05:48→14:52)
[2018-01-23 05:49] VITALS: BP 111/48; PULSE 63; RESP 18; TEMP 36.7; O2SAT 98
[2018-01-23 07:15] VITALS: O2SAT 96
[2018-01-23 07:46] LABS: Anion Gap 10 (5-15); BUN 18 mg/dL (7-18); BUN/Creat Ratio 18.2 RATIO (10-20); Chloride 109 mmol/L (98-107); Creatinine, Serum 0.99 mg/dL (0.70-1.30); EST Glomerular Filtration Rate 78 mL/min (>60); Est Glom Filt Rate - Afr Amer 95 mL/min (>60); Estimated Creatinine Clearance 62.28 ml/min; Glucose 167 mg/dL (74-106); Potassium 4.5 mmol/L (3.5-5.1); Sodium Level 141 mmol/L (136-145)
[2018-01-23 08:11] VITALS: PULSE 66
[2018-01-23] MEDS: Aspirin 81 MG TAB.CHEW PO (08:11)
[2018-01-23] MEDS: Metoprolol Tartrate 50 MG Tablet PO (08:11)
[2018-01-23] MEDS: Lisinopril 40 MG Tablet PO (08:11)
[2018-01-23] MEDS: Insulin Lispro 100 UNIT/ML INSULN.PEN 6 UNIT SC ×3 (08:15→16:30)
[2018-01-23] MEDS: Insulin Lispro 100 UNIT/ML INSULN.PEN SC ×3 (08:15→16:30)
[2018-01-23] MEDS: Finasteride 5 MG Tablet PO (08:16)
[2018-01-23 08:18] VITALS: BP 166/73; PULSE 67; RESP 18; TEMP 36.8; O2SAT 98
[2018-01-23 08:55] LABS: Bedside Glucose 191 mg/dL (70-110)
[2018-01-23 11:55] LABS: Bedside Glucose 334 mg/dL (70-110)
--- NOTE | 2018-01-23 12:00 | CASEMGMT ---
Social Work Note ALFREDO received note from Charge Nurse Nayeli that Hilda Loera ([phone]) is personnel consultant for pt and would like this worker to call her to confirm discharge plans. Per previous notes, pt had given permission for staff at [facility] to call Hilda. ALFREDO placed a call to Hilda. Hilda states that pt's house is inhabitable and pt shouldn't return there at discharge. Hilda states that the house has black mold, cockroaches, cat feces, only running water in the sink and pt is unable to care for himself. ALFREDO explained that as long as pt is alert and orientated he is able to make decisions for himself. 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 Hilda states that pt doesn't drive and he is unable to pay his bills. Hilda confirms that she made an APS report last month and when APS came out to speak with pt, pt wouldn't let them in his house. Hilda states that she will also be calling the health department in regards to pt's living conditions. ALFREDO informed pt that this worker will speak to pt regarding discharge plans and will follow up on APS referral. Hilda states understanding and would like to be notified when pt discharges. SW in to meet with pt to discuss discharge plans. ALFREDO introduced self and role at [facility]. Pt is alert and orientated x4. Pt states that he lives alone now that this sister is at [facility]. Pt states that he was previously independent and was able to care for himself. PT states that he was able to keep his house clean. ALFREDO explained to pt that he may benefit from short term placement at SNF for additional rehabilitation and care before returning home. Pt agreeable to SNF and would like a referral sent to [facility] as his sister is there. ALFREDO placed a call to [facility] quality management and left her a message to send referral. ALFREDO placed a call to APS and left a referral for Myrtle Smith ([phone]). ALFREDO received call from Sudha at [facility] stating she is able to accept pt. ALFREDO informed Sudha that this worker will update physician and will await to see if pt is discharging today. ALFREDO received call from Myrtle Smith at [facility]. ALFREDO updated Myrtle on pt's admission into [facility] and that pt was agreeable to [facility] and they are able to accept pt. Myrtle states she would like this worker to call her when pt officially discharges to [facility]. ALFREDO updated physician of acceptance into [facility] and pt is able to discharge today. Convalescent 7000 completed in PENDING SALE TO [facility]. Plan: Discharge to [facility] when medically cleared Larissa Ford CURBING STONECUTTER, POULTRY VACCINATOR
--- NOTE | 2018-01-23 13:10 | CASEMGMT ---
Per ALFREDO Arias, referral to be sent to [facility]. Attempted to contact Sudha, isabela, but voicemail full. Referral faxed, confirmation received. Rosa Mead LPN Clinical Support
--- NOTE | 2018-01-23 14:25 | CASEMGMT ---
Rec'd voicemail from Sudha at [facility], they are able to accept patient. Voicemail left for ALFREDO Arias updating her of same. Rosa Mead LPN Clinical Support
[2018-01-23 14:50] VITALS: BP 150/75; PULSE 63; RESP 18; TEMP 36.7; O2SAT 99
--- NOTE | 2018-01-23 16:15 | TREXTCAR_ITS ---
- Diet 01/20/18 23:16 Diabetic [Diet: Calorie Controlled] Food consistency:: Regular Liquid Consistency:: Regular/Thin Is pt able to select menu?: No Diet Comments: Okay for p.o. meds, sips of water and ice chips How many daily calories?: 1800 calorie - Routine Orders/Code Status Routine Lab Work: - - fingerstick BS ACQHS-coverage with Humalog SQ per BS: 200- 250: 5 units, 251-300: 8 units, 301-350: 12 units, 351-400: 15 units - Therapies Weight Bearing: Full weight bearing Physical Therapy: Eval and Treat Occupational Therapy: Eval and Treat - Problem/Diagnosis (1) Non-compliance with treatment Status: Chronic Current Visit: Yes (2) Type 2 diabetes mellitus Status: Chronic Current Visit: No (3) Coronary artery disease Status: Chronic Current Visit: Yes (4) Hyperglycemic hyperosmolar state Status: Acute Current Visit: Yes (5) Hypertension Status: Chronic Current Visit: No (6) Hard of hearing Status: Chronic Current Visit: Yes - Allergies/Procedures Done in Hospital Allergies/Adverse Reactions: Allergies No Known Allergies Allergy (Verified 03/19/15 19:41) Procedures: None - Type of Care/Length of Stay Estimated LOS: Convalescent Care Less Than 30 days Type of Care Needed: Skilled Rehab Potential: Good Prognosis: Good - Additional Orders/Day of Discharge H&P will serve as current which was dated: 01/20/18 Day of Discharge: 01/23/18 - Dietary and Speech Recommendations Dietitian Recommendations/Changes: Continue 1800 calorie controlled diet. - Follow Up Care Primary Care Physician: Roseann Jackson MD [Primary Care Provider] -
--- NOTE | 2018-01-23 16:19 | CASEMGMT ---
Addendum entered by Larissa Ford 01/23/18 17:06: SW placed a call to Myrtle Smith at [facility] and left her a message that pt will be discharged to [facility] today. Original Note: Social Work Note SW in to update pt on acceptance into [facility]. Pt still agreeable to [facility]. Pt states that a lady had talked to him on Tuesday about medicaid application but he never received application. SW provided pt with Medicaid Application. SW informed pt that once he arrives to [facility] staff at [facility] can assist him with completing application if he wishes to. Pt states understanding. ALFREDO placed a call to Hilda Loera and updated pt on acceptance to [facility]. Hilda states that she was just at pt's house feeding his cat and the junior network engineer was there and he contacted the Health Department about pt's house. ALFREDO explained to Hilda that once pt is at [facility] he can apply for Medicaid and if pt is agreeable to assisted care Medicaid will pay for pt to be in seafood technology specialist care. ALFREDO explained Medicare guidelines to Hilda. Hilda states understanding. ALFREDO completed convalescent 7000 in [facility]. ALFREDO placed green sheet on chart and mentioned on geen sheet for staff to call Hilda once transportation has been set up for pt. ALFREDO placed a call to Sudha at [facility] and updated her that pt will be discharged today and that [facility] has been involved with pt. Sudha states she is familiar with pt and his environment as pt's sister is a resident of [facility]. Plan: Pt to discharge to [facility] today skilled. Green sheet on chart. Larissa Ford FLUID DYNAMICIST, RESPIRATORY TECH
[2018-01-23] MEDS: Tamsulosin HCl 0.4 MG Capsule PO (16:30)
[2018-01-23 17:00] LABS: Bedside Glucose 191 mg/dL (70-110)
--- NOTE | 2018-01-23 17:43 | CASEMGMT ---
Social Work Note Call from nursing stating that the pt is being discharged to SNF and they do not have transportation setup and d/t late discharge cannot find a company to transport. According to nursing the pt does not have any medical necessity to be transported by ambulance. Placed call to [facility], no transport available. Placed call to [facility] who can have transport available at 1900. Notified bedside RN, Briana. Nursing aware they will need to complete an ambulette form. Placed call to [facility] and spoke with Maryanne to update that the pt would be discharged from [facility] at 1900. PLAN: [facility] at 1900 to transport via ambulette to [facility]. Rosa Rico, RAILCAR CARPENTER, TRISTAN
--- NOTE | 2018-01-25 18:18 | PCM.DC.SUM ---
Discharge Date and Diagnosis Date of Admission: 01/20/18 Date of Discharge: 01/23/18 - Primary Discharge Diagnosis 1 hyperosmolar nonketotic hyperglycemia secondary to type 2 diabetes uncontrolled #2 coronary artery disease #3 acute kidney injury #4 hypertension #5 noncompliance with medical regimen #6 hard of hearing #7 self-neglect #8 hyponatremia #9 hyperkalemia - Secondary Discharge Diagnosis Chronic Problems Non-compliance with treatment (Chronic) Hard of hearing (Chronic) Type 2 diabetes mellitus (Chronic) Status post coronary artery bypass graft (Chronic) Coronary artery disease (Chronic) Benign prostatic hypertrophy (Chronic) Hyperlipidemia (Chronic) Hypertension (Chronic) Presbycusis of both ears (Chronic) TIA (transient ischemic attack) (Chronic) Hospital Course and Treatment Operations: None Procedures: None Summary of Care Provided: The patient is a 77 year old M seen in the emergency room at [facility] with a chief complaint of generalized weakness times 3 days with also complaints of shortness of breath. Patient was not a poor informant, he was very hard of hearing, and on further interview the patient was noted that he had not sought medical attention from a doctor in many months and was not taking any medications. Patient had a history of type 2 diabetes. Labs obtained in the emergency room showed an elevated white blood cell count of 14.9, hemoglobin was 12.1, basic metabolic panel revealed a sodium of 128, potassium of 5.4, anion gap of 10, and glucose of 661. BUN and creatinine were 48 and 1.81 respectively. Troponin was obtained and was normal. Patient was placed on an insulin drip and admitted to ICU and given IV fluids. Patient's blood sugar decreased and he was moved out of the ICU to [place] [id number]. It became evident that the patient was unable to care for himself, he was seen by PT and OT and felt to be candidate to go to a halfway facility for skilled care. On 01/23/18, patient was seen and examined and felt to be in stable condition for discharge to a halfway facility. Physical exam: On examination he appeared in good health and spirits. Patient was extremely hard of hearing. Vital signs as documented on 01/23/18. Skin warm and dry and without overt rashes. Neck without JVD. Lungs clear. Heart exam notable for regular rhythm, normal sounds and absence of murmurs, rubs or gallops. Abdomen unremarkable and without evidence of organomegaly, masses, or abdominal aortic enlargement. Extremities nonedematous. Neuro: Cranial nerves II through XII are grossly intact, no focal motor deficits were noted. Psych: Patient was alert and appropriate, he was a poor informant, he did not appear to be depressed or anxious - Physical Exam Vital Signs Temp Pulse Resp BP Pulse Ox 98.1 F 63 18 150/75 H 99 01/23/18 14:50 01/23/18 14:50 01/23/18 14:50 01/23/18 14:50 01/23/18 14:50 Oxygen Delivery Method Room Air Weight: 68.3 kg Body Mass Index (BMI) 22.4 Finger Stick Blood Glucose 295 Intake and Output for Last 24 Hours 01/23/18 01/24/18 01/25/18 23:59 23:59 23:59 Intake Total 1120 / 1120 Balance 1120 / 1120 Home Medications: Medications to take at Discharge Finasteride [Proscar] 5 mg PO DAILY 10/19/13 Tamsulosin HCl [Flomax] 0.4 mg PO DAILY 10/19/13 Aspirin [Aspirin, Baby] 81 mg PO DAILY@0800 03/20/15 Atorvastatin Calcium 20 mg PO QHS 01/20/18 Lisinopril [Zestril] 40 mg PO DAILY 01/20/18 Metoprolol Tartrate [Lopressor (beta chastity)] 50 mg PO BID 01/20/18 Insulin Glargine [Lantus SoloStar Pen] 30 units SC QHS #1 pen 01/23/18 Insulin Lispro [Humalog KwikPen] 12 unit SC TIDAC #1 insuln.pen 01/23/18 Following Prescrptions Were Given to Patient: Insulin Glargine [Lantus SoloStar Pen] 30 units SC QHS #1 pen Insulin Lispro [Humalog KwikPen] 12 unit SC TIDAC #1 insuln.pen Primary Care Physician: Roseann Jackson MD [Primary Care Provider] - Disposition: Fdc facility Minutes spent on discharge:: 32 Patient Condition:: Stable Medical Necessity - Tobacco Use Smoking Status: Never smoker Tobacco Use: Non-smoker Meaningful Use Info Meaningful Use Diagnoses (Choose all that apply): None applicable Code Visit Inpatient E&M: 66171 Disch Hosp
--- NOTE | 2018-01-25 18:22 | DS.PCM_ITS ---
Discharge Date and Diagnosis Date of Admission: 01/20/18 Date of Discharge: 01/23/18 - Primary Discharge Diagnosis 1 hyperosmolar nonketotic hyperglycemia secondary to type 2 diabetes uncontrolled #2 coronary artery disease #3 acute kidney injury #4 hypertension #5 noncompliance with medical regimen #6 hard of hearing #7 self-neglect #8 hyponatremia #9 hyperkalemia - Secondary Discharge Diagnosis Chronic Problems Non-compliance with treatment (Chronic) Hard of hearing (Chronic) Type 2 diabetes mellitus (Chronic) Status post coronary artery bypass graft (Chronic) Coronary artery disease (Chronic) Benign prostatic hypertrophy (Chronic) Hyperlipidemia (Chronic) Hypertension (Chronic) Presbycusis of both ears (Chronic) TIA (transient ischemic attack) (Chronic) Hospital Course and Treatment Operations: None Procedures: None Summary of Care Provided: The patient is a 77 year old M seen in the emergency room at [facility] with a chief complaint of generalized weakness times 3 days with also complaints of shortness of breath. Patient was not a poor informant, he was very hard of hearing, and on further interview the patient was noted that he had not sought medical attention from a doctor in many months and was not taking any medications. Patient had a history of type 2 diabetes. Labs obtained in the emergency room showed an elevated white blood cell count of 14.9, hemoglobin was 12.1, basic metabolic panel revealed a sodium of 128, potassium of 5.4, anion gap of 10, and glucose of 661. BUN and creatinine were 48 and 1.81 respectively. Troponin was obtained and was normal. Patient was placed on an insulin drip and admitted to ICU and given IV fluids. Patient's blood sugar decreased and he was moved out of the ICU to [place] [address]. It became evident that the patient was unable to care for himself, he was seen by PT and OT and felt to be candidate to go to a fdc facility for skilled care. On 01/23/18, patient was seen and examined and felt to be in stable condition for discharge to a fdc facility. Physical exam: On examination he appeared in good health and spirits. Patient was extremely hard of hearing. Vital signs as documented on 01/23/18. Skin warm and dry and without overt rashes. Neck without JVD. Lungs clear. Heart exam notable for regular rhythm, normal sounds and absence of murmurs, rubs or gallops. Abdomen unremarkable and without evidence of organomegaly, masses, or abdominal aortic enlargement. Extremities nonedematous. Neuro: Cranial nerves II through XII are grossly intact, no focal motor deficits were noted. Psych: Patient was alert and appropriate, he was a poor informant, he did not appear to be depressed or anxious - Physical Exam Vital Signs Temp Pulse Resp BP Pulse Ox 98.1 F 63 18 150/75 H 99 01/23/18 14:50 01/23/18 14:50 01/23/18 14:50 01/23/18 14:50 01/23/18 14:50 Oxygen Delivery Method Room Air Weight: 68.3 kg Body Mass Index (BMI) 22.4 Finger Stick Blood Glucose 295 Intake and Output for Last 24 Hours 01/23/18 01/24/18 01/25/18 23:59 23:59 23:59 Intake Total 1120 / 1120 Balance 1120 / 1120 Home Medications: Medications to take at Discharge Finasteride [Proscar] 5 mg PO DAILY 10/19/13 Tamsulosin HCl [Flomax] 0.4 mg PO DAILY 10/19/13 Aspirin [Aspirin, Baby] 81 mg PO DAILY@0800 03/20/15 Atorvastatin Calcium 20 mg PO QHS 01/20/18 Lisinopril [Zestril] 40 mg PO DAILY 01/20/18 Metoprolol Tartrate [Lopressor (beta chastity)] 50 mg PO BID 01/20/18 Insulin Glargine [Lantus SoloStar Pen] 30 units SC QHS #1 pen 01/23/18 Insulin Lispro [Humalog KwikPen] 12 unit SC TIDAC #1 insuln.pen 01/23/18 Following Prescrptions Were Given to Patient: Insulin Glargine [Lantus SoloStar Pen] 30 units SC QHS #1 pen Insulin Lispro [Humalog KwikPen] 12 unit SC TIDAC #1 insuln.pen Primary Care Physician: Roseann Jackson MD [Primary Care Provider] - Disposition: Penitentiary facility Minutes spent on discharge:: 32 Patient Condition:: Stable Medical Necessity - Tobacco Use Smoking Status: Never smoker Tobacco Use: Non-smoker Meaningful Use Info Meaningful Use Diagnoses (Choose all that apply): None applicable Code Visit Inpatient E&M: 27083 Disch Hosp
== END 2018-01-23 18:56 | disposition skilled nursing facility (03) | DRG 638 ==
LOC: ED 14:42 → ICU 16:22 → MS3 01-21 10:25
PROVIDERS: Admitting Provider Hospitalist; Emergency Provider Emergency Medicine; Family Provider Internal Medicine; PCP Internal Medicine; Visit Provider Internal Medicine
DX: E11.00 Type 2 diabetes mellitus with hyperosmolarity without nonketotic hyperglycemic-hyperosmolar coma (NKHHC) (principal); N17.9 Acute kidney failure, unspecified; E87.5 Hyperkalemia; I10 Essential (primary) hypertension; N40.0 Benign prostatic hyperplasia without lower urinary tract symptoms; E78.5 Hyperlipidemia, unspecified; E11.65 Type 2 diabetes mellitus with hyperglycemia; I25.10 Atherosclerotic heart disease of native coronary artery without angina pectoris; Z95.1 Presence of aortocoronary bypass graft; Z23 Encounter for immunization
CPT/HCPCS: 36415; 36600; 71046; 80048; 80053; 81001; 82009; 82803; 82962; 83036; 84443; 84484; 85025; 93005; 97116; 97162; 97166; 97530; 97535; 97802; 99285; J7030; 90686; A4216

== ENCOUNTER 2019-07-31 08:37 | Inpatient (IN) | payer MEDICARE, MEDICAID, SELFPAY ==
[2019-07-31] VITALS (18 sets, daily range): BP systolic 114–162; BP diastolic 49–109; PULSE 75–126; RESP 16–24; TEMP 36.2–38; O2SAT 94–98; BMI 26.4; BMI 25.6
--- NOTE | 2019-07-31 08:44 | EKG12_ITS ---
Test Reason : WEAKNESS Blood Pressure : / mmHG Vent. Rate : 107 BPM Atrial Rate : 107 BPM P-R Int : 146 ms QRS Dur : 136 ms QT Int : 408 ms P-R-T Axes : 061 -26 245 degrees QTc Int : 544 ms Sinus tachycardia with Premature atrial complexes Non-specific intra-ventricular conduction block T wave abnormality, consider inferolateral ischemia Abnormal ECG Confirmed by RAMAN VARELA ([id number]), writer editor FITO LYNNE ([id number]) on 08/06/2019 2:49:20 PM Referred By: GEO Confirmed By:RAMAN VARELA
--- NOTE | 2019-07-31 08:45 | ED.DCSUM_ITS ---
History of Present Illness Chief Complaint: General Illness Narrative: Patient arrives from a retirement, 2 days ago he was tested for COVID however the result is not back yet, there are incidences of COVID at that [facility]. He was found to have pneumonia yesterday and started on Levaquin he arrives via ambulance he was sent into the emergency department since apparently he was having difficulty breathing and appeared worse, he normally mentate relatively well however now he is nonverbal and quite confused. I cannot get any history from him or any review of systems. Past Medical History - Allergies and Home Meds Allergies/Adverse Reactions: Allergies No Known Allergies Allergy (Verified 07/31/19 08:45) Primary Care Physician: Roseann Jackson MD [Primary Care Provider] - Past Medical History: - - She has extensive medical history reviewed on his [facility] paperwork, and includes diabetes hypertension, chronic debility. Surgical History: - - Patient is hard of hearing and cannot remember if he had any surgeries in his life. Smoking Status: Never smoker - Family History Maternal Family History: Reports: - - Patient is hard of hearing, not able to provide detailed family history. Additional Family History: family history is unobtainable. Paternal Family History: Reports: - - Patient is hard of hearing. Review of Systems ROS: Unable to Obtain Physical Exam Vital Signs/Narrative: Vital Signs Temp Pulse Resp BP Pulse Ox 07/31/19 08:42 97.7 F L 102 H 22 H 132/100 H 97 General: Cachectic, - - Patient appears chronically ill, he also appears acutely ill, he is actively coughing although it is nonproductive Head: Normocephalic, Atraumatic Eyes: Perrl ENT: - - Dry mucous membranes Neck: Supple Cardiovascular: Regular rhythm, - - Tachycardic Respiratory: - - He is tachypneic, he has decreased breath sounds bilaterally I cannot appreciate wheezing Abdomen: Soft, - - He does not withdraw when I palpate his abdomen Rectal: - - Rectal exam shows dark brown stool, it is not black or melanotic I will send it since per paramedics they thought he may have a GI bleed Back: Nontender, Normal Inspection Extremities: Negative for: Edema Skin: - - No obvious rash no petechiae Neurological: - - Has no gross focal deficit he is moving all his extremities however he does not answer any is not appropriate. Diagnostic/Tx/Re-eval - Rhythm Strip Rhythm Strip: Sinus Rhythm - EKG Initial EKG Interpretation: - - Sinus tachycardia with a rate of 107. Normal AL interval. Prolonged QTc interval at 544. Nonspecific intraventricular conduction delay. Lateral ST depression and T wave inversion. Interpreted by emergency doctor - Medical Decision Making Patient is found to have pneumonia, this was confirmed yesterday at the ECF on an outpatient x-ray, the F he is at also has cases of COVID and he was tested 2 days ago although we do not have results yet. Thus there is a concern for COVID. He meets criteria for septic shock due to his lactic acid greater than 4 however because of the increased morbidity with aggressive hydration I will not give 30 mL's per kilogram of fluids for the patient's safety. This is the current understanding of the pathology of COVID at this time as of July 30. Patient was given IV antibiotics, I will admit him. - Critical Care Time Critical care time (excluding procedures): 30-74 minutes, Discussing w/Consultants, Performing Direct Patient Care at Bedside ED Disposition - Plan for ED Patient: Disposition: Acute Care Hospital [facility] Diagnosis: concern for COVID, Pneumonia, Septic shock Referrals: Roseann Jackson MD [Primary Care Provider] -
--- NOTE | 2019-07-31 08:48 | CT_ITS ---
STUDY: CT BRAIN WITHOUT CONTRAST REASON FOR EXAM: Male, 79 years old. ENCEPHALOPATHY RADIATION DOSAGE (If Supplied By Facility): CTDIvol = ( 44.99 ) mGy, DLP = ( 748.30 ) mGycm TECHNIQUE: Transaxial CT imaging of the brain was performed without administration of intravenous contrast material. Individualized dose optimization techniques were used for this CT. COMPARISON: Comparison is made with prior study dated January 15, 2014. FINDINGS: Normal soft tissue structures. Normal calvarium. There is moderate cerebral atrophy with widening of the extra-axial spaces and ventricular dilatation. There are areas of decreased attenuation within the white matter tracts of the supratentorial brain, consistent with microvascular disease changes. Normal basal ganglia and thalami. Normal brainstem. Normal cerebellum. There is no intracranial hemorrhage. There are no findings of an acute ischemic infarction. Atherosclerotic calcification of the cavernous portions of the internal carotid arteries bilaterally. Mucosal thickening of the maxillary sinuses bilaterally. CT/Brain/Head without Contrast IMPRESSION: Chronic involutional changes of the brain. Electronically Signed: Rey Dominguez, at 11:09 EDT , Service support ,
[2019-07-31] MEDS: Ondansetron 4 MG/2 ML Vial IV (09:38)
[2019-07-31] MEDS: 0.9% Normal Saline 1,000 ML 150 ML IV ×2 (09:41→18:40)
[2019-07-31 09:59] LABS: Absolute Lymphocyte Count 0.81 X10^3/uL (0.83-4.51); Absolute Neutrophil Count 8.6 X10^3/uL (2.0-7.7); Basophil# 0.01 X10^3/uL; Basophil% 0.1 % (0-1); Hematocrit 43.4 % (40-54); Hemoglobin 14.3 g/dL (13.0-16.5); Lymphocyte # 0.81 X10^3/ul (4.0); Lymphocyte % 8.2 % (19-41); Mean Corp Hgb Conc 32.9 g/dL (32-36); Mean Corpuscular Hgb 30.4 pg (27.0-32.0); Mean Corpuscular Volume 92.1 fL (80-94); Mean Platelet Vol. 10.6 fl (6.2-12.0); Monocyte# 0.43 X10^3/uL; Monocyte% 4.4 % (0-10); NRBC Flagged by Analyzer 0 % (0-5); Neutrophil # 8.55 X10^3/uL (2.7-7.7); Platelet Count 200 K/mm3 (150-450); RBC Distribution Width CV 12.9 % (11.6-14.6); RBC Distribution Width SD 43.6 fl (35.1-43.9); Red Blood Count 4.71 M/mm3 (4.6-6.2); White Blood Count 9.8 K/mm3 (4.4-11.0)
[2019-07-31 10:06] LABS: Bacteria 0 SEEN /hpf (None Seen); Mucous, Urine 0 SEEN /hpf (<or=2+); White Blood Cells 0 SEEN /hpf (0-5)
[2019-07-31 10:07] LABS: Color, Urine Yellow (Yellow); Glucose, Dipstick 50 mg/dl (Normal); Ketone-Dipstick 5 mg/dl (Negative); Leukocyte Esterase-Dipstick Negative /ul (Negative); Nitrite-Dipstick Negative (Negative); Occult Blood-Urine 50 /ul (Negative); Protein-Dipstick 30 mg/dl (Negative); Urine Bilirubin Dipstick Negative (Negative); Urine Clarity Sl. Cloudy (Clear); Urine Urobilinogen Normal (Normal)
[2019-07-31 10:08] LABS: International Normalized Ratio 1.1; Prothrombin Time (Protime)PT. 13.6 SECONDS (11.7-14.9)
[2019-07-31 10:09] LABS: Partial Thromboplast Time 25.5 Seconds (24.1-36.2)
[2019-07-31 10:16] LABS: ALB/GLOB Ratio 0.8 RATIO (0.9-2.4); AST(SGOT) 30 U/L (15-37); Alanine Aminotransfer ALT/SGPT 45 U/L (16-61); Alkaline Phosphatase 55 U/L (45-117); Anion Gap 16 (5-15); BUN 97 mg/dL (7-18); BUN/Creat Ratio 34.4 RATIO (10-20); Chloride 107 mmol/L (98-107); Creatinine, Serum 2.82 mg/dL (0.70-1.30); EST Glomerular Filtration Rate 23 mL/min (>60); Est Glom Filt Rate - Afr Amer 28 mL/min (>60); Estimated Creatinine Clearance 22.65 ml/min; Glucose 354 mg/dL (74-106); Potassium 4.3 mmol/L (3.5-5.1); Sodium Level 141 mmol/L (136-145)
[2019-07-31 10:18] LABS: Red Blood Cells-Urine 0-5 SEEN /hpf (0-5); Squamous Epithelial Cells - UA 0-5 SEEN /hpf (0-5)
--- NOTE | 2019-07-31 10:20 | RAD_ITS ---
STUDY: X-RAY CHEST REASON FOR EXAM: Male, 79 years old. GI bleed, also recent dx or pneumonia/cough, recent exposure to COVID TECHNIQUE: Single AP portable view of the chest. COMPARISON: Comparison is made with prior examination dated January 20, 2018. FINDINGS: EKG electrodes are seen. Focal right middle lobe infiltrate. Focal infiltrates in the left hemithorax preferentially in the peripheral aspect. Sternal cerclage wires and vascular clips are present from a prior sternotomy and coronary artery bypass graft procedure (CABG). Normal mediastinum and alyson. Normal visualized pulmonary arteries. There is atherosclerotic calcification of the aortic arch with tortuosity. There are diffuse degenerative changes of the visualized thoracic spine. Normal visualized ribs, clavicles, and shoulders. There is no demonstrated abnormality of the visualized soft tissue structures of the upper abdomen. RAD/Chest 1 View (Portable) IMPRESSION: Right middle lobe infiltrate. Infiltrate seen in the peripheral aspect of the left hemithorax. Clinical correlation is recommended. Electronically Signed: Rey Dominguez, at 11:02 EDT , Service support ,
[2019-07-31 10:29] LABS: Lactic Acid 4.5 mmol/L (0.4-1.9)
--- NOTE | 2019-07-31 10:49 | NURSING ---
PCU [facility]
--- NOTE | 2019-07-31 11:03 | ED.RN ---
per dr delgado, no iv bolus d/t concern of covid
[2019-07-31] MEDS: Ceftriaxone 1 GM/50 ML BAG IV (11:16)
--- NOTE | 2019-07-31 12:42 | NURSING ---
[facility] 203
[2019-07-31 13:53] LABS: Reflex Lactate? Y
[2019-07-31 14:40] LABS: Lactic Acid 2.9 mmol/L (0.4-1.9)
--- NOTE | 2019-07-31 14:54 | PCM.HP.STD ---
History of Present Illness Date of Admission: 07/31/19 Chief Complaint: change in mental status The patient is a 79 year old M patient is noted to have a change in mental status and difficulty breathing. Patient had been checked for COVID, which results are still pending this week and was diagnosed with pneumonia this week and started on levofloxacin. Despite that, the patient was noted to have symptoms that he had today. Patient is awake but nonverbal and unable to write any history. In the emergency room, patient was noted to have infiltrate on chest x-ray and received azithromycin and Rocephin. Lactic acid was elevated at 4.5 and he received 2 L of IV fluid. Repeat lactic acid upon arrival to the floor was 2.9. [] Past Medical History Past Medical History (Chronic Problems): Chronic Problems Non-compliance with treatment (Chronic) Hard of hearing (Chronic) Type 2 diabetes mellitus (Chronic) Status post coronary artery bypass graft (Chronic) Coronary artery disease (Chronic) Benign prostatic hypertrophy (Chronic) Hyperlipidemia (Chronic) Hypertension (Chronic) Presbycusis of both ears (Chronic) TIA (transient ischemic attack) (Chronic) Allergies No Known Allergies Allergy (Verified 07/31/19 08:45) Home Medications: Ambulatory Orders Medication Instructions Recorded Finasteride [Proscar] 5 mg PO QHS 10/19/13 Tamsulosin HCl [Flomax] 0.4 mg PO QHS 10/19/13 Aspirin [Aspirin, Baby] 81 mg PO DAILY@0800 03/20/15 Atorvastatin Calcium 20 mg PO QHS 01/20/18 Lisinopril [Zestril] 40 mg PO DAILY 01/20/18 Metoprolol Tartrate [Lopressor 50 mg PO BID 01/20/18 (beta chastity)] Furosemide [Lasix] 20 mg PO DAILY 07/31/19 Insulin Glargine [Lantus SoloStar 48 units SUBCUT QHS 07/31/19 Pen] Insulin Lispro [Humalog KwikPen] 12 unit SUBCUT BID 07/31/19 Insulin Lispro [Humalog KwikPen] 14 unit SQ BREAKFAST 07/31/19 Levofloxacin [Levaquin] 500 mg PO DAILY 07/31/19 Surgical History: - - Patient is hard of hearing and cannot remember if he had any surgeries in his life. Psychiatric History: No pertinent psych hx Smoking Status: Unknown if ever smoked - *Family History Maternal History Items: - - Patient is hard of hearing, not able to provide detailed family history. Paternal History Items: - - Patient is hard of hearing. Review of Systems Unable to obtain accurate/complete ROS d/t: Patient is nonverbal VTE Information - Inpt Only VTE Present on Admission: No VTE Mechan Device Prophylaxis: None VTE Pharm Prophylaxis ordered?: Yes Patient Problems: Active and Suspected Problems Pneumonia (Acute) Septic shock (Acute) - Physical Exam Vitals/I&O's: Vital Signs Temp Pulse Resp BP Pulse Ox 36.8 C 101 H 22 H 155/70 H 98 07/31/19 12:51 07/31/19 13:30 07/31/19 13:30 07/31/19 13:30 07/31/19 13:30 Oxygen Flow Rate (L/min) 2 Oxygen Delivery Method Nasal Cannula Weight: 81.1 kg Body Mass Index (BMI) 25.6 Finger Stick Blood Glucose 295 Intake and Output for Last 24 Hours 07/29/19 07/30/19 07/31/19 23:59 23:59 23:59 Intake Total 545 / 545 Balance 545 / 545 General: - - Awake. Nonverbal. Afebrile. HEENT: Atraumatic, Normocephalic Oral: Moist Mucosa, No Gingival or Mucosal Lesions/ Ulcerations Neck: No Nodes, Trachea Midline Lungs: - - Poor inspiratory effort. Patient not able to sit up but anteriorly was diminished but otherwise clear. Cardiovascular: Regular rate, Regular Rhythm, Normal S1, Normal S2, No murmurs Abdomen: Bowel Sounds Present, Soft, Non Tender, Non-Distended, No Hepato-splenomegaly Extremities: No edema, No Calf Tenderness Skin: No rashes, No breakdown Musculoskeletal: No Tenderness to Palpation of Joints or Extremities, No Muscle Wasting Neurological: Deep Tendon Reflexes 2+/4 and Symmetrical, - - He was moves all extremities spontaneously. Does not follow any commands. No clonus Microbiology Past 72 Hours 07/31/19 09:10 Stool Stool Occult Blood (TRISTEN) - Final Occult Blood Positive Laboratory Results 07/31/19 09:25: WBC 9.8, RBC 4.71, Hgb 14.3, Hct 43.4, MCV 92.1, MCH 30.4, MCHC 32.9, RDW Std Deviation 43.6, RDW Coeff of Rocael 12.9, Plt Count 200, MPV 10.6, Immature Gran % (Auto) 0.300, Neut % (Auto) 87.0 H, Lymph % (Auto) 8.2 L, [place] % (Auto) 4.4, Eos % (Auto) 0.0, Baso % (Auto) 0.1, Absolute Neuts (auto) 8.6 H, Absolute Lymphs (auto) 0.81 L, Nucleated RBC % 0 07/31/19 09:25: PT 13.6, INR 1.1, APTT 25.5 07/31/19 09:25: Sodium 141, Potassium 4.3, Chloride 107, Carbon Dioxide 18.0 L, Anion Gap 16 H, BUN 97 H, Creatinine 2.82 H, Estim Creat Clear Calc 22.65, Est GFR (MDRD) Af Amer 28 L, Est GFR (MDRD) Non-Af 23 L, BUN/Creatinine Ratio 34.4 H, Glucose 354 H, Calcium 8.0 L, Total Bilirubin 0.80, AST 30, ALT 45, Alkaline Phosphatase 55, Troponin I 0.143 H, Total Protein 7.0, Albumin 3.0 L, Globulin 4.0, Albumin/Globulin Ratio 0.8 L 07/31/19 09:25: Lactic Acid 4.5 H* 07/31/19 09:55: Urine Color Yellow, Urine Clarity Sl. Cloudy, Urine pH 5.0, Ur Specific [place] 1.020, Urine Protein 30 H, Urine Glucose (UA) 50 H, Urine Ketones 5 H, Urine Occult Blood 50 H, Urine Nitrite Negative, Urine Bilirubin Negative, Urine Urobilinogen Normal, Ur Leukocyte Esterase Negative, Urine RBC 0-5 SEEN, Urine WBC 0 SEEN, Ur Squamous Epith Cells 0-5 SEEN, Urine Bacteria 0 SEEN, Urine Mucus 0 SEEN 07/31/19 10:56: COVID-19 (JUAN MANUEL) Pending 07/31/19 13:45: Lactic Acid Pending 07/31/19 13:55: Lactic Acid 2.9 H* Chest x-ray reviewed and showed right lower lobe infiltrate. Current Medications Sodium Chloride () 1,000 mls @ 150 mls/hr IV .Q6H40M ALY Last Infusion: 07/31/19 13:55 Dose: 150 mls/hr Documented by: Sodium Chloride () 10 - 40 ml IV UD PRN PRN Reason: SALINE FLUSH Assessment/Plan All Active Problems Pneumonia (Acute) Septic shock (Acute) Hyperkalemia (Acute) Hyperglycemic hyperosmolar state (Acute) Acute kidney injury (Acute) Pseudohyponatremia (Acute) Type I diabetes mellitus (Ruled-out) 1. Septic shock: Present on arrival and since resolved. This is based solely on the patient's lactic acid as patient has remained hemodynamically stable. Repeat lactic acid is 2.9 after 2 L of IV fluid. Time of onset was 925 based solely lactic acid. Repeat lactic acid at 1355, roughly 4 and half hours later, showed improvement. Therefore I do not feel the patient requires ICU level of care at this time and will put the patient in progressive care unit in the cohort COVID units. Etiology is pneumonia and this may likely be bacterial but cannot rule out viral process such as COVID-19. We will continue with IV fluids and monitor. Follow-up all the cultures 2. Pneumonia, possible gram-negative: Given the fact the patient resides at a nursing facility, would treat the patient aggressively with broad-spectrum antibiotics. Patient received azithromycin and Rocephin in the emergency room. Check sputum culture, urinary antigens for Streptococcus and Legionella, COVID-19. 3. Metabolic encephalopathy: Secondary to above. Unclear the patient is baseline is but was told through nursing that the patient is normally independent at his facility. Given the fact that patient has no focal deficits, I feel is prime more metabolic rather than a strokelike process. Head CT showed no acute change. Consider MRI imaging if symptoms do persist. Patient will need to be evaluated for safety swallowing prior to eating. 4. Acute kidney injury: Creatinine 2.82. Creatinine was 0.99 back in January 2018. I will feel this is a progression of chronic kidney disease but more likely an acute process. No recent lab work to compare to, however. Will recheck lab work in the morning to see if there is been any change. 5. VTE prophylaxis with enoxaparin. 6. [facility] planning: [facility] full CODE STATUS. Inpatient E&M: 11518 Init Hosp L3
[2019-07-31 17:58] LABS: Reflex Lactate? Y
[2019-07-31] MEDS: Insulin Lispro 100 UNIT/ML INSULN.PEN SC (18:23)
[2019-07-31 19:36] LABS: Bedside Glucose 467 mg/dL (70-110)
[2019-07-31] MEDS: Metoprolol Tartrate 25 MG Tablet 50 MG PO (20:51)
[2019-07-31] MEDS: Acetaminophen 325 MG Tablet 650 MG PO (20:51)
--- NOTE | 2019-07-31 21:14 | PCM.PN.BLA ---
Progress Note Per nursing recommendation will make patient npo secondary to dysphagia. Tylenol suppository. Change insulin and blood glucose to q4hs; metoprolol po to IV. STROKE Vital Signs/Narrative: Vital Signs Temp Pulse Resp BP Pulse Ox 07/31/19 20:51 122 H 07/31/19 20:08 100.2 F H 108 H 23 H 130/49 H 94
[2019-07-31] MEDS: Insulin Lispro 100 UNIT/ML INSULN.PEN 12 UNIT SC (21:49)
[2019-07-31 22:01] LABS: Bedside Glucose 475 mg/dL (70-110)
[2019-07-31 22:24] LABS: Glucose 480 mg/dL (74-106)
[2019-08-01] VITALS (14 sets, daily range): BP systolic 122–145; BP diastolic 58–104; PULSE 78–136; RESP 16–20; TEMP 36.1–38.2; O2SAT 93–96
[2019-08-01] MEDS: Insulin Lispro 100 UNIT/ML INSULN.PEN SC ×4 (00:31→22:32)
[2019-08-01 00:55] LABS: Bedside Glucose 349 mg/dL (70-110)
[2019-08-01] MEDS: 0.9% Normal Saline 1,000 ML 150 ML IV ×4 (01:48→22:44)
[2019-08-01 03:28] LABS: Absolute Neutrophil Count 7.9 X10^3/uL (2.0-7.7); Basophil# 0.01 X10^3/uL; Basophil% 0.1 % (0-1); Hematocrit 44.5 % (40-54); Hemoglobin 14.4 g/dL (13.0-16.5); Lymphocyte % 9.8 % (19-41); Mean Corp Hgb Conc 32.4 g/dL (32-36); Mean Corpuscular Hgb 30.8 pg (27.0-32.0); Mean Corpuscular Volume 95.3 fL (80-94); Mean Platelet Vol. 10.4 fl (6.2-12.0); Monocyte# 0.38 X10^3/uL; Monocyte% 4.1 % (0-10); NRBC Flagged by Analyzer 0 % (0-5); Neutrophil % 85.7 % (47-70); Platelet Count 172 K/mm3 (150-450); RBC Distribution Width SD 45.6 fl (35.1-43.9); Red Blood Count 4.67 M/mm3 (4.6-6.2); White Blood Count 9.2 K/mm3 (4.4-11.0)
[2019-08-01] MEDS: Acetaminophen 650 MG Suppository RECTAL (03:48)
[2019-08-01 03:57] LABS: Anion Gap 9 (5-15); BUN 85 mg/dL (7-18); BUN/Creat Ratio 37.3 RATIO (10-20); Chloride 121 mmol/L (98-107); Creatinine, Serum 2.28 mg/dL (0.70-1.30); EST Glomerular Filtration Rate 30 mL/min (>60); Est Glom Filt Rate - Afr Amer 36 mL/min (>60); Estimated Creatinine Clearance 28.02 ml/min; Glucose 234 mg/dL (74-106); Potassium 4.7 mmol/L (3.5-5.1); Sodium Level 146 mmol/L (136-145)
[2019-08-01] MEDS: Metoprolol Tartrate 5 MG/5 ML Vial IV ×4 (05:36→22:32)
[2019-08-01] MEDS: Enoxaparin 30 MG/0.3 ML Syringe SC (05:43)
--- NOTE | 2019-08-01 06:26 | PCM.RX.CS ---
Consult Pharmacy has been consulted to manage selected antiobiotic: Vancomycin Type of Consult: New start Suspected Infection: Sepsis Labs: Sodium 146 mmol/L (136-145) H 08/01/19 03:16 Potassium 4.7 mmol/L (3.5-5.1) 08/01/19 03:16 Chloride 121 mmol/L (98-107) H 08/01/19 03:16 Carbon Dioxide 16.0 mmol/L (21.0-32.0) L 08/01/19 03:16 Anion Gap 9 (5-15) 08/01/19 03:16 BUN 85 mg/dL (7-18) H 08/01/19 03:16 Creatinine 2.28 mg/dL (0.70-1.30) H 08/01/19 03:16 Est GFR (MDRD) Af Amer 36 mL/min (>60) L 08/01/19 03:16 Est GFR (MDRD) Non-Af 30 mL/min (>60) L 08/01/19 03:16 BUN/Creatinine Ratio 37.3 RATIO (10-20) H 08/01/19 03:16 Glucose 234 mg/dL (74-106) H 08/01/19 03:16 Microbiology: Microbiology 07/31/19 21:35 Urine Catheter - Sun Streptococcus pneumoniae Antigen (M - Final 07/31/19 21:35 Urine Catheter - Sun Legionella Antigen - Final 07/31/19 14:20 Mucosa - Nose Respiratory Panel (PCR) - Final 07/31/19 09:10 Stool Stool Occult Blood (TRISTEN) - Final Occult Blood Positive Weight used for dosin.1 kg Estimated Creatinine Clearance: 28.02 Goal Trough: 15-20 mcg/mL Pharmacy Plan for Drug Dosing: Pharmacy Service will continue to monitor and adjust dosing as required. Medications Vancomycin HCl (Vancomycin) 1,000 mg in 200 mls @ 200 mls/hr IV Q24H ALY Discontinued Medications Vancomycin HCl 1,250 mg/ (Sodium Chloride) 275 mls @ 167 mls/hr IV X1 ONE Stop: 08/01/19 01:38 Last Admin: 08/01/19 02:30 Dose: Infused Documented by: Follow-Up Labs: Trough Vancomycin Labs to be done on [date and time ordered]: 08/01 @ 9095
--- NOTE | 2019-08-01 08:23 | NURSING ---
MELINA Stevens updated on POC. Per Hilda, pt's friend Frederick Olivo is okay to be updated as well. ([phone]).
[2019-08-01 09:36] LABS: Bedside Glucose 141 mg/dL (70-110)
[2019-08-01 10:06] LABS: Bedside Glucose 145 mg/dL (70-110)
--- NOTE | 2019-08-01 10:24 | CASEMGMT ---
ALFREDO faxed updates to [facility]. ALFREDO also called patient's next of kin listed, Hilda Loera and confirmed the plan is for patient to return to [facility] at d/c. She said he lives at [facility]. SW to follow for d/c back to [facility]. Genoveva HUDSON MAT GAUGER
--- NOTE | 2019-08-01 14:43 | PN_ITS ---
Patient Problems: Active and Suspected Problems Pneumonia (Acute) Septic shock (Acute) Reason for Visit: pneumonia Subjective: Per RN, has been more interactive, but is selective. Vitals/I&O's: Vital Signs Temp Pulse Resp BP Pulse Ox 37.4 C H 89 16 122/94 H 93 08/01/19 14:35 08/01/19 14:35 08/01/19 14:35 08/01/19 14:35 08/01/19 14:35 Oxygen Flow Rate (L/min) 3 Oxygen Delivery Method Nasal Cannula Weight: 79.9 kg Body Mass Index (BMI) 25.6 Finger Stick Blood Glucose 295 Intake and Output for Last 24 Hours 07/30/19 07/31/19 08/01/19 23:59 23:59 23:59 Intake Total 1257.5 / 1257.5 3285.0 / 3285.0 Output Total 1400 / 1400 1400 / 1400 Balance -142.5 / -142.5 1885.0 / 1885.0 General: - - awake. afebrile. HEENT: Atraumatic, Normocephalic Oral: Moist Mucosa, No Gingival or Mucosal Lesions/ Ulcerations Neck: No Nodes, Trachea Midline Lungs: Clear to auscultation, No rhonchi, No wheeze, Diminished Cardiovascular: Regular rate, Regular Rhythm, Normal S1, Normal S2, No murmurs Abdomen: Bowel Sounds Present, Soft, Non Tender, Non-Distended, No Hepato- splenomegaly Extremities: No edema, No Calf Tenderness Psych/Mental Status: Normal Affect, Appropriate Microbiology Past 72 Hours 07/31/19 09:55 Urine, Clean Catch Urine Culture - Preliminary Culture exhibits no growth. 07/31/19 21:35 Urine Catheter - Sun Streptococcus pneumoniae Antigen (M - Final 07/31/19 21:35 Urine Catheter - Sun Legionella Antigen - Final 07/31/19 14:20 Mucosa - Nose Respiratory Panel (PCR) - Final 07/31/19 09:10 Stool Stool Occult Blood (TRISTEN) - Final Occult Blood Positive Laboratory Results 07/31/19 00:15: Troponin I 0.308 H 07/31/19 10:56: COVID-19 (JUAN MANUEL) Pending 07/31/19 13:45: Lactic Acid Cancelled 07/31/19 18:02: POC Glucose 467 H* 07/31/19 18:40: Lactic Acid Cancelled 07/31/19 20:32: POC Glucose 475 H* 07/31/19 21:28: Troponin I 0.219 H 07/31/19 21:28: Glucose 480 H* 08/01/19 00:30: POC Glucose 349 H 08/01/19 03:16: WBC 9.2, RBC 4.67, Hgb 14.4, Hct 44.5, MCV 95.3 H, MCH 30.8, MCHC 32.4, RDW Std Deviation 45.6 H, RDW Coeff of Rocael 13.0, Plt Count 172, MPV 10.4, Immature Gran % (Auto) 0.300, Neut % (Auto) 85.7 H, Lymph % (Auto) 9.8 L, [place] % (Auto) 4.1, Eos % (Auto) 0.0, Baso % (Auto) 0.1, Absolute Neuts (auto) 7.9 H, Absolute Lymphs (auto) 0.90, Nucleated RBC % 0 08/01/19 03:16: Sodium 146 H, Potassium 4.7, Chloride 121 H, Carbon Dioxide 16.0 L, Anion Gap 9, BUN 85 H, Creatinine 2.28 H, Estim Creat Clear Calc 28.02, Est GFR (MDRD) Af Amer 36 L, Est GFR (MDRD) Non-Af 30 L, BUN/Creatinine Ratio 37.3 H , Glucose 234 H, Calcium 8.0 L 08/01/19 03:16: Troponin I 0.237 H 08/01/19 05:31: POC Glucose 141 H 08/01/19 09:43: POC Glucose 145 H Current Medications Acetaminophen (Tylenol) 650 mg RECTAL Q4H PRN PRN PRN Reason: fever> 100.7F or pain 1-10 Last Admin: 08/01/19 03:48 Dose: 650 mg Documented by: Aspirin (Aspirin, Baby) 81 mg PO DAILY@1000 ALY Last Admin: 08/01/19 08:07 Dose: Not Given Documented by: Atorvastatin Calcium (Lipitor) 20 mg PO QHS [facility] Last Admin: 07/31/19 21:18 Dose: Not Given Documented by: Dextrose (D50w Syringe) 0 gm IV X1 PRN; Protocol PRN Reason: Hypoglycemia Dextrose (D50w Syringe) 0 gm IV X1 PRN; Protocol PRN Reason: Hypoglycemia Enoxaparin Sodium (Lovenox) 30 mg SC DAILY@0600 [facility] Last Admin: 08/01/19 05:43 Dose: 30 mg Documented by: Finasteride (Proscar) 5 mg PO QHS [facility] Last Admin: 07/31/19 21:18 Dose: Not Given Documented by: Glucagon () 1 mg IM .X1 PRN PRN Reason: Hypoglycemia Glucagon () 1 mg IM .X1 PRN PRN Reason: Hypoglycemia Guaifenesin (Mucinex) 1,200 mg PO BID [facility] Last Admin: 08/01/19 08:07 Dose: Not Given Documented by: Sodium Chloride () 1,000 mls @ 150 mls/hr IV .Q6H40M [facility] Last Admin: 08/01/19 14:32 Dose: 150 mls/hr Documented by: Piperacillin Sod/Tazobactam (Sod 3.375 gm/ Sodium Chloride) 50 mls @ 12.5 mls/hr IV Q8 [facility] Stop: 08/07/19 18:31 Last Admin: 08/01/19 14:32 Dose: 12.5 mls/hr Documented by: Vancomycin IV Pharmacy to Dose (1 ea/ Sodium Chloride) 500 mls @ 250 mls/hr IV X1 PRN; Protocol PRN Reason: Rx to Dose Vancomycin HCl (Vancomycin) 1,000 mg in 200 mls @ 200 mls/hr IV Q24H [facility] Insulin Glargine (Lantus (Bkc)) 48 units SC QHS [facility] Last Admin: 07/31/19 21:34 Dose: 48 units Documented by: Insulin Human Lispro (Humalog Kwikpen (Bk)) 0 unit SC Q4 [facility]; Protocol Last Admin: 08/01/19 14:31 Dose: 2 units Documented by: Metoprolol Tartrate (Lopressor (Beta Jarret)) 5 mg IV Q6 [facility] Last Admin: 08/01/19 11:20 Dose: 5 mg Documented by: Tamsulosin HCl (Flomax) 0.4 mg PO QHS [facility] Last Admin: 07/31/19 20:51 Dose: Not Given Documented by: STROKE Vital Signs/Narrative: Vital Signs Temp Pulse Resp BP Pulse Ox 08/01/19 14:35 37.4 C H 89 16 122/94 H 93 08/01/19 11:20 103 H 128/68 H 08/01/19 11:00 88 Medical Necessity - Tobacco Use Smoking Status: Unknown if ever smoked Assessment/Plan All Active Problems Pneumonia (Acute) Septic shock (Acute) Hyperkalemia (Acute) Hyperglycemic hyperosmolar state (Acute) Acute kidney injury (Acute) Pseudohyponatremia (Acute) Type I diabetes mellitus (Ruled-out) 1. Septic shock: Present on arrival and since resolved. This is based solely on the patient's lactic acid as patient has remained hemodynamically stable. Repeat lactic acid is 2.9 after 2 L of IV fluid. Time of onset was 925 based solely lactic acid. Repeat lactic acid at 1355, roughly 4 and half hours later, showed improvement. Therefore I do not feel the patient requires ICU level of care at this time and will put the patient in progressive care unit in the cohort COVID units. Etiology is pneumonia and this may likely be bacterial but cannot rule out viral process such as COVID-19. We will continue with IV fluids and monitor. Follow-up all the cultures 2. Pneumonia, possible gram-negative: Given the fact the patient resides at a nursing facility, would treat the patient aggressively with broad-spectrum antibiotics. Patient received azithromycin and Rocephin in the emergency room. Resp panel, strep and legionella negative COVID-19 pending. 3. Metabolic encephalopathy: ongoing. Perhaps better.Secondary to above. Unclear the patient is baseline is but was told through nursing that the patient is normally independent at his facility. Given the fact that patient has no focal deficits, I feel is prime more metabolic rather than a strokelike process. Head CT showed no acute change. Consider MRI imaging if symptoms do persist. Patient will need to be evaluated for safety swallowing prior to eating. 4. Acute kidney injury: improving Creatinine was 0.99 back in January 2018. I will feel this is a progression of chronic kidney disease but more likely an acute process. No recent lab work to compare to, however. Will recheck lab work in the morning to see if there is been any change. 5. VTE prophylaxis with enoxaparin. 6. Advanced care planning: Per the skilled nursing records patient is full CODE STATUS. Inpatient E&M: 04588 Subs Hosp L2
[2019-08-01 14:45] LABS: Bedside Glucose 200 mg/dL (70-110)
[2019-08-01 18:00] LABS: Bedside Glucose 231 mg/dL (70-110)
[2019-08-01 23:06] LABS: Bedside Glucose 268 mg/dL (70-110)
[2019-08-02] VITALS (15 sets, daily range): BP systolic 104–153; BP diastolic 48–80; PULSE 89–128; RESP 12–43; TEMP 36.3–37.7; O2SAT 81–100
[2019-08-02] MEDS: Vancomycin IV 1,000 MG/200 ML BAG 200 MG IV (01:00)
[2019-08-02] MEDS: Metoprolol Tartrate 5 MG/5 ML Vial IV ×2 (01:00→05:35)
[2019-08-02] MEDS: Insulin Lispro 100 UNIT/ML INSULN.PEN SC ×3 (02:35→12:56)
[2019-08-02 02:51] LABS: Bedside Glucose 260 mg/dL (70-110)
--- NOTE | 2019-08-02 05:00 | PCM.PN.BLA ---
Progress Note Stop IVF for reported respiratory distress and crackles. Trend BMP STROKE Vital Signs/Narrative: Vital Signs Pulse Resp BP 08/02/19 04:39 124 H 40 H 104/48 L 08/02/19 02:50 103 H
--- NOTE | 2019-08-02 05:10 | NURSING ---
Primary RN went into pt's room as telemetry alarming with HR between 140s to 170bpm. Nurse called out and asked this nurse to page the hospitalist and respiratory therapist as HR remaining elevated, pt RR 40 rpm and nurse unable to obtain an a good sp02 reading with the best reading 79% on 4L 02. Pt moaning. Attended same at 0455hrs. Relayed information to respiratory therapist and hospitalist. Respiratory therapy in reviewing pt when hospitalist called. Relayed lung sounds of rhonchi/crackles. Asked Dr if he would like ABGs if a good sp02 reading was unable to be obtained. He confirmed and placed order for ABGs. IV fluids discontinued and metoprolol increased to Q4H starting at 0600hrs. HR 120s-130s whilst on phone with . Primary RN and respiratory therapy remain with pt at time of report.
[2019-08-02] MEDS: Acetaminophen 650 MG Suppository RECTAL (05:40)
[2019-08-02] MEDS: Enoxaparin 30 MG/0.3 ML Syringe SC (06:03)
--- NOTE | 2019-08-02 06:08 | PN_ITS ---
Progress Note Patient in respiratory distress with respiration of 40. Discussed code status with Hilda Loera, cousin who reports herself as POA. Explained different CODE STATUS to POA. Taken into consideration patient's comorbidities, Hilda Loera agreed that patient should be a DNR CCA with no intubation. Discussed with nursing team who will contact senior living and/or Hilda Loera for a copy of POA document. Discussed with respiratory therapy to put patient on BIPAP. Time for Code discussion is 16 minutes. STROKE Vital Signs/Narrative: Vital Signs Pulse Resp BP BP 08/02/19 05:35 124 H 104/48 L 08/02/19 04:39 124 H 40 H 104/48 L 08/02/19 02:50 103 H Procedures: 47887 Advncd Care Plan 30 Min
--- NOTE | 2019-08-02 06:10 | NURSING ---
Hospitalist called the floor and notified this nurse he had spoken to the patient's next of kin Hilda Loera to discuss the patient's condition and discuss his code status further. Ms Loera informed the hospitalist she is patient's Power of College President. Code status was discussed and according to Hospitalist, Ms Loera would like patient's status changed to DNRCC-A with no intubation. Hospitalist requested a copy of the POA be obtained from [facility] where pt is a resident. This nurse called the [facility] and staff unable to find a copy on their files but stated the social media marketing manager would have a copy and to call back after 9am.
[2019-08-02 06:45] LABS: Bedside Glucose 232 mg/dL (70-110)
--- NOTE | 2019-08-02 07:42 | RAD_ITS ---
STUDY: X-RAY CHEST REASON FOR EXAM: Male, 79 years old. Shortness of breath TECHNIQUE: Single AP portable view of the chest. COMPARISON: Comparison is made with prior examination dated July 31, 2019. FINDINGS: EKG electrodes are seen. Since prior study, there has been a progression of the bilateral increased markings with areas of confluence in the right middle lobe and left lower lobe. Further follow-up is recommended. There is no demonstrated pleural abnormality. Sternal cerclage wires and vascular clips are present from a prior sternotomy and coronary artery bypass graft procedure (CABG). Normal mediastinum and alyson. Normal visualized pulmonary arteries. There is atherosclerotic calcification of the aortic arch with tortuosity. There are diffuse degenerative changes of the visualized thoracic spine. Normal visualized ribs, clavicles, and shoulders. There is no demonstrated abnormality of the visualized soft tissue structures of the upper abdomen. RAD/Chest 1 View (Portable) IMPRESSION: Progressive increased markings at both lung bases. Follow-up is recommended. Electronically Signed: Rey Dominguez, at 8:41 EDT , Service support ,
[2019-08-02 09:15] LABS: Absolute Lymphocyte Count 0.85 X10^3/uL (0.83-4.51); Absolute Neutrophil Count 5.2 X10^3/uL (2.0-7.7); Hematocrit 41.7 % (40-54); Lymphocyte # 0.85 X10^3/ul (4.0); Lymphocyte % 13.6 % (19-41); Mean Corp Hgb Conc 33.6 g/dL (32-36); Mean Corpuscular Volume 95.2 fL (80-94); Mean Platelet Vol. 10.6 fl (6.2-12.0); Monocyte# 0.17 X10^3/uL; Monocyte% 2.7 % (0-10); NRBC Flagged by Analyzer 0 % (0-5); Neutrophil % 82.9 % (47-70); Platelet Count 143 K/mm3 (150-450); RBC Distribution Width CV 13.4 % (11.6-14.6); RBC Distribution Width SD 46.2 fl (35.1-43.9); Red Blood Count 4.38 M/mm3 (4.6-6.2); White Blood Count 6.3 K/mm3 (4.4-11.0)
[2019-08-02 10:03] LABS: Anion Gap 12 (5-15); BUN 63 mg/dL (7-18); BUN/Creat Ratio 30.4 RATIO (10-20); Calcium,Total 7.9 mg/dL (8.5-10.1); Chloride 129 mmol/L (98-107); Creatinine, Serum 2.07 mg/dL (0.70-1.30); EST Glomerular Filtration Rate 33 mL/min (>60); Est Glom Filt Rate - Afr Amer 40 mL/min (>60); Estimated Creatinine Clearance 30.86 ml/min; Glucose 244 mg/dL (74-106); Potassium 4.3 mmol/L (3.5-5.1); Sodium Level 157 mmol/L (136-145)
--- NOTE | 2019-08-02 10:11 | CASEMGMT ---
Social Work Phone call to Shirlene at [facility] and [facility] requesting HCPOA for pt be faxed to [facility]. ELIJAH Beckham
[2019-08-02 11:10] LABS: D-Dimer Quantitative (DVT/PE) 6.04 FEU/ug/m (0.27-0.49)
[2019-08-02 12:26] LABS: Base Excess -10 mmol/L (-2 to +2); Bicarbonate 14.5 mmol/L (22-26); PO2 34 mmHG (75-100); SO2 70 % (95-99); Total Carbon Dioxide 15 mmol/L; pCO2 21.6 mmHg (35-45); pH 7.43 (7.35-7.45)
[2019-08-02 12:29] LABS: Blood Gas Specimen Type ART; SITE L BRACHIAL
[2019-08-02 12:33] LABS: Time Given 543
--- NOTE | 2019-08-02 13:03 | NURSING ---
ST called this morning and states they will be around to eval patient around 1430. Notified that patient using hand to ask staff for a drink. Understanding verbalized.
[2019-08-02 13:56] LABS: Bedside Glucose 231 mg/dL (70-110)
--- NOTE | 2019-08-02 14:26 | PN_ITS ---
Patient Problems: Active and Suspected Problems Pneumonia (Acute) Septic shock (Acute) Reason for Visit: pneumonia Subjective: hypoxic and tachypneic. Required BiPAP. Kept pulling off BiPAP and sats would go from low 90s to 70s. Vitals/I&O's: Vital Signs Temp Pulse Resp BP Pulse Ox 36.7 C 110 H 30 H 153/73 H 96 08/02/19 12:55 08/02/19 12:55 08/02/19 12:55 08/02/19 12:55 08/02/19 12:55 Oxygen Flow Rate (L/min) 6 Oxygen Delivery Method Bi-pap Weight: 80 kg Body Mass Index (BMI) 25.6 Finger Stick Blood Glucose 295 Intake and Output for Last 24 Hours 07/31/19 08/01/19 08/02/19 23:59 23:59 23:59 Intake Total 1257.5 / 1257.5 4335.0 / 4335.0 1285.21 / 1285.21 Output Total 1400 / 1400 1400 / 1400 Balance -142.5 / -142.5 2935.0 / 2935.0 1285.21 / 1285.21 General: Confused, - - tachypneic. aggitated. HEENT: Atraumatic, Normocephalic Neck: No Nodes, Trachea Midline Lungs: - - coarse breath sounds bilaterally. Cardiovascular: Regular rate, Regular Rhythm, Normal S1, Normal S2, No murmurs Abdomen: Bowel Sounds Present, Soft, Non Tender, Non-Distended, No Hepato- splenomegaly Extremities: No edema, No Calf Tenderness Skin: No rashes Musculoskeletal: No Tenderness to Palpation of Joints or Extremities, No Muscle Wasting Neurological: - - no clonus, moves all extremities spontanesouly Psych/Mental Status: Agitated, Anxious Microbiology Past 72 Hours 07/31/19 09:55 Urine, Clean Catch Urine Culture - Final Culture exhibits no growth. 07/31/19 09:30 Blood Culture (Wb) - Right Hand Blood Culture - Preliminary No growth in 48 hours. 07/31/19 09:25 Blood Culture (Wb) - Anticubital Right Blood Culture - Prelim inary No growth in 48 hours. 07/31/19 21:35 Urine Catheter - Sun Streptococcus pneumoniae Antigen (M - Final 07/31/19 21:35 Urine Catheter - Sun Legionella Antigen - Final 07/31/19 14:20 Mucosa - Nose Respiratory Panel (PCR) - Final 07/31/19 09:10 Stool Stool Occult Blood (TRISTEN) - Final Occult Blood Positive Laboratory Results 08/01/19 14:30: POC Glucose 200 H 08/01/19 16:31: POC Glucose 231 H 08/01/19 22:50: POC Glucose 268 H 08/02/19 02:34: POC Glucose 260 H 08/02/19 05:37: Specimen Type ART, Sample Site L BRACHIAL, pH 7.43, Bicarbonate Actual 14.5 L, POC Total CO2 15, Base Excess -10 L, O2 Saturation 70 L, ABG pCO2 21.6 L, ABG pO2 34 L*, Blood Gas Notified Whom SALIMA GO, Blood Gas Notified Time 543 08/02/19 06:00: POC Glucose 232 H 08/02/19 08:46: Sodium 157 H, Potassium 4.3, Chloride 129 H*, Carbon Dioxide 16.0 L, Anion Gap 12, BUN 63 H, Creatinine 2.07 H, Estim Creat Clear Calc 30.86, Est GFR (MDRD) Af Amer 40 L, Est GFR (MDRD) Non-Af 33 L, BUN/Creatinine Ratio 30.4 H, Glucose 244 H, Calcium 7.9 L 08/02/19 09:04: WBC 6.3, RBC 4.38 L, Hgb 14.0, Hct 41.7, MCV 95.2 H, MCH 32.0, MCHC 33.6, RDW Std Deviation 46.2 H, RDW Coeff of Rocael 13.4, Plt Count 143 L, MPV 10.6, Immature Gran % (Auto) 0.800, Neut % (Auto) 82.9 H, Lymph % (Auto) 13.6 L, Briscoe % (Auto) 2.7, Eos % (Auto) 0.0, Baso % (Auto) 0.0, Absolute Neuts (auto) 5.2, Absolute Lymphs (auto) 0.85, Nucleated RBC % 0 08/02/19 10:35: D-Dimer Quant (PE/DVT) 6.04 H* 08/02/19 12:45: POC Glucose 231 H CXR reviewed and shows worsening pulmonary edema bilaterally. Current Medications Acetaminophen (Tylenol) 650 mg RECTAL Q4H PRN PRN PRN Reason: fever> 100.7F or pain 1-10 Last Admin: 08/02/19 05:40 Dose: 650 mg Documented by: Guaifenesin (Mucinex) 1,200 mg PO BID ALY Last Admin: 08/02/19 14:14 Dose: Not Given Documented by: Lorazepam (Ativan Intensol) 1 mg SL Q4H PRN PRN PRN Reason: ANXIETY Morphine Sulfate (Roxanol (Ir Oral Solution)) 10 mg SL/PO Q1H PRN PRN PRN Reason: Pain Score 6-10/10 or dyspnea STROKE Vital Signs/Narrative: Vital Signs Temp Pulse Resp BP Pulse Ox 08/02/19 12:55 36.7 C 110 H 30 H 153/73 H 96 08/02/19 12:00 128 H 43 H Medical Necessity - Tobacco Use Smoking Status: Unknown if ever smoked Assessment/Plan All Active Problems Pneumonia (Acute) Septic shock (Acute) Hyperkalemia (Acute) Hyperglycemic hyperosmolar state (Acute) Acute kidney injury (Acute) Pseudohyponatremia (Acute) Type I diabetes mellitus (Ruled-out) 1. Septic shock: Present on arrival and since resolved. This is based solely on the patient's lactic acid as patient has remained hemodynamically stable. Repeat lactic acid is 2.9 after 2 L of IV fluid. Time of onset was 925 based solely lactic acid. Repeat lactic acid at 1355, roughly 4 and half hours later, showed improvement. Therefore I do not feel the patient requires ICU level of care at this time and will put the patient in progressive care unit in the cohort COVID units. Etiology is pneumonia and this may likely be bacterial but cannot rule out viral process such as COVID-19. We will continue with IV fluids and monitor. Follow-up all the cultures 2. Pneumonia, possible gram-negative: worse Given the fact the patient resides at a nursing facility, would treat the patient aggressively with broad-spectrum antibiotics. Patient received azithromycin and Rocephin in the emergency room. Resp panel, strep and legionella negative COVID-19 pending. 3. Metabolic encephalopathy: ongoing. Perhaps better.Secondary to above. Unclear the patient is baseline is but was told through nursing that the patient is normally independent at his facility. Given the fact that patient has no focal deficits, I feel is prime more metabolic rather than a strokelike process. Head CT showed no acute change. Consider MRI imaging if symptoms do persist. Patient will need to be evaluated for safety swallowing prior to eating. 4. Acute kidney injury: improving Creatinine was 0.99 back in January 2018. I will feel this is a progression of chronic kidney disease but more likely an acute process. No recent lab work to compare to, however. Will recheck lab work in the morning to see if there is been any change. 5. VTE prophylaxis with enoxaparin. 6. Advanced care planning: Per the longterm records patient is full CODE STATUS. Now [facility] Advanced care planning: Spent an additional 15 minutes discussing with the patient's privacy attorney, Hilda Loera, explained is a situation that he is tachycardic, tachypneic. Explained that he has been on the BiPAP and sats have been in the 90s low but he keeps pulling off and immediately his drops down to 70s even with oxygen. Explained that his situation will continue to decline as he would not be able to maintain this rapid shallow breathing for much longer. I recommended comfort measures for him. She agrees. She would be in agreement if the patient does survive throughout the night that we could consult hospice and potentially look to hospice care center. My life expectancy of this patient, unfortunately, is likely hours. She explains that the patient's roommate to [facility] recently and was checked for COVID-19 but the results, according her still pending. Inpatient E&M: 22524 [facility] L3 Procedures: 75321 Advncd Care Plan 30 Min
--- NOTE | 2019-08-02 14:34 | CASEMGMT ---
Social Work Received fax from [facility] which was pt financial POA. Phone call to MELINA Loera who states there is not a separate HCPOA but Clause M of financial POA indicates her rights to assign medical care for pt. ELIJAH Beckham
[2019-08-02] MEDS: morphine (oral solution) 10MG/0.5ML Syringe 10 MG SL/PO ×2 (16:55→18:50)
[2019-08-02] MEDS: LORazepam 2 MG/ML Bottle 1 MG SL (16:56)
--- NOTE | 2019-08-02 22:45 | NURSING ---
This nurse notified Jyoti, Nursing supervisor post wave of the demise of pt. . Found pt with no pulse or respirations.
--- NOTE | 2019-08-02 23:00 | NURSING ---
Lack of pulse and respirations verified by this nurse and other RN, Linda Madrid.
--- NOTE | 2019-08-02 23:00 | NURSING ---
THIS RN ASSESSED PT IN CONJUNCTION W/PRIMARY RN. NO RESPIRATIONS NOTED. NO APICAL PULSE, NO CAROTID PULSE.
--- NOTE | 2019-08-03 01:11 | NURSING ---
Pt. body prepared for home with only belonging 1 yellow ring on pt. finger. [employer], Home notified. Family notified, Hilda SUMMERS, cousin.
--- NOTE | 2019-08-03 01:30 | NURSING ---
Lab called with positive covid result.
--- NOTE | 2019-08-03 07:56 | EXP.PCM_ITS ---
Preliminary Cause of COVID-19 Date of Admission: 07/31/19 Date of : 08/02/19 - Principle Diagnosis COVID-19 Acute respiratory distress syndrome Septic shock Problem List: metabolic encephalopathy ELAN Hospital Course Presents with change in mental status. Patient was having trouble breathing as well. Patient was found to have some infiltrates on chest x-ray and had an elevated lactic acid of 4.5 and subsequent went down to 2.9. Patient was started on azithromycin and Rocephin for pneumonia. Patient's course continued to decline and a repeat chest x-ray in 3 show diffuse hazy infiltrate more consistent with acute respiratory distress syndrome. Patient was made DNR Comfort Care arrest no intubation from a full CODE STATUS he was previously but he continued to decline. Patient was put on BiPAP and was able to maintain his sats but was tachypneic we given his confusion would continue to take the BiPAP off. Then when he would do so, given with oxygen, sats are dropped into the 70% range. Spoke with the patient's power of state's attorney, Hilda Loera, and explained the case with her and that he was rapidly declining and would likely not survive. I recommended comfort measures and hospice and she was in agreement. So aggressive measures were removed, IVs were stopped and BiPAP. The patient was put on oxygen comfort medications were ensued. Patient on August 02, 2019 [id number]. Inpatient E&M: [id number] [facility]
--- NOTE | 2019-08-03 08:54 | CASEMGMT ---
Bulk Sealer Operator spoke with Dominique at [facility] and notified of pt . Clinical information faxed. ELIJAH Beckham
== END 2019-08-02 22:45 | DRG 871 ==
LOC: ED 10:36 → ICU 15:11 → MS2 08-01 08:06
PROVIDERS: Emergency Provider Emergency Medicine; PCP Internal Medicine
DX: A41.9 Sepsis, unspecified organism (principal); U07.1 COVID-19; J80 Acute respiratory distress syndrome; J18.9 Pneumonia, unspecified organism; R65.21 Severe sepsis with septic shock; G93.41 Metabolic encephalopathy; N17.9 Acute kidney failure, unspecified; R13.10 Dysphagia, unspecified; I25.10 Atherosclerotic heart disease of native coronary artery without angina pectoris; I10 Essential (primary) hypertension; E78.5 Hyperlipidemia, unspecified; E11.65 Type 2 diabetes mellitus with hyperglycemia; H91.90 Unspecified hearing loss, unspecified ear; Z66 Do not resuscitate; Z95.1 Presence of aortocoronary bypass graft; Z79.4 Long term (current) use of insulin; Z79.811 Long term (current) use of aromatase inhibitors; Z79.899 Other long term (current) drug therapy; Z86.73 Personal history of transient ischemic attack (TIA), and cerebral infarction without residual deficits
CPT/HCPCS: 36415; 36600; 70450; 71045; 80048; 80053; 81001; 82274; 82803; 82947; 82962; 83605; 84484; 85025; 85379; 85610; 85730; 87040; 87086; 87449; 87633; 87635; 92526; 92610; 93005; 94002; 96361; 96365; 96366; 96375; 97162; 97166; 99285; G2023; J7030; J7040; J7050; A4216; J2405; U0004